=== PATIENT | female | born 1940 | race Caucasian/White ===

== ENCOUNTER 2018-04-03 06:01 | Emergency (ER) | payer MEDICARE, BC, OTHER ==
[2018-04-03] MEDS ORDERED: ASPIRIN 81 MG TABLET, CHEWABLE PO ONE (07:02)
--- NOTE | 2018-04-03 07:17 | ER Document Report ---
ED General - General Chief Complaint: Back Pain Stated Complaint: FALL/BACK PAIN Time Seen by Provider: 04/03/18 07:17 TRAVEL OUTSIDE OF THE [place] IN LAST 30 DAYS: No - HPI Notes: 77-year-old demented female presents with back pain. His back pain is been going on for 6 months. Sharp in nature without radiation. Patient is a poor historian this history is from her and sister bedside. Patient denies all symptoms at this time. Has been seen multiple times by her PCP has access to pain medicine, has a lidocaine patch in place. Patient denies all systems. Patient family states she has been afebrile no other complaints. Although has been suffering from long-standing back pain. Denies any new falls. The found the patient sitting on the floor bedside this morning asked her what was wrong that her back hurts. Refused to get up off floor. 911 called. Patient in good spirits laughing. - Related Data Allergies/Adverse Reactions: No Known Allergies Allergy (Unverified 08/03/11 20:09) Past Medical History - Social History Smoking Status: Never Smoker Chew tobacco use (# tins/day): No Frequency of alcohol use: None Drug Abuse: None Family History: None Patient has suicidal ideation: No Patient has homicidal ideation: No - Past Medical History Cardiac Medical History: Reports: Hx Hypercholesterolemia, Hx Hypertension Endocrine Medical History: Reports: Hx Diabetes Mellitus Type 2 Renal/ Medical History: Denies: Hx Peritoneal Dialysis - Immunizations Hx Diphtheria, Pertussis, Tetanus Vaccination: Yes Review of Systems - Review of Systems -: Yes ROS unobtainable due to patient's medical condition - dementai Physical Exam - Vital signs Vitals: Temp Pulse Resp BP Pulse Ox 98.6 F 80 18 204/79 H 96 04/03/18 06:01 04/03/18 06:01 04/03/18 06:01 04/03/18 06:01 04/03/18 06:01 - Notes Notes: PHYSICAL EXAMINATION: GENERAL: Well-appearing, well-nourished and in no acute distress. HEAD: Atraumatic, normocephalic. EYES: Pupils equal round and reactive to light, extraocular movements intact, sclera anicteric, conjunctiva are normal. ENT: nares patent, oropharynx clear without exudates. Moist mucous membranes. NECK: Normal range of motion, supple without lymphadenopathy LUNGS: Breath sounds clear to auscultation bilaterally and equal. No wheezes rales or rhonchi. HEART: Regular rate and rhythm without murmurs ABDOMEN: Soft, nontender, normoactive bowel sounds. No guarding, no rebound. No masses appreciated. EXTREMITIES: Normal range of motion, no pitting or edema. No cyanosis. NEUROLOGICAL: Cranial nerves grossly intact. Normal speech, normal gait. Normal sensory and motor exams. PSYCH: Normal mood, normal affect. SKIN: Warm, Dry, normal turgor, no rashes or lesions noted. Course - Re-evaluation Re-evalutation: 04/03/18 09:09 Demented elderly female presents with chronic back pain. Patient's extensive lab workup unremarkable, including CPK, troponins, kidney function. Patient's imaging study reveals no acute process in her back. Patient states she has no pain at this time. Will be discharged home with oral analgesia follow-up with PCP. Family states they have been working with her family doctor to possibly move the patient to assisted living or memory care unit but at this time thinks they can take her home - Vital Signs Vital signs: Temp Pulse Resp BP Pulse Ox 98.6 F 80 19 177/69 H 95 04/03/18 06:01 04/03/18 06:01 04/03/18 08:31 04/03/18 08:31 04/03/18 08:31 - Laboratory Result Diagrams: 04/03/18 07:05 04/03/18 07:05 Laboratory results interpreted by me: 04/03/18 04/03/18 04/03/18 07:05 07:05 07:05 WBC 11.1 H RDW 18.0 H PT 22.5 H Sodium 145.6 H Potassium 5.3 H BUN 23 H Glucose 144 H - EKG Interpretation by Me Additional EKG results interpreted by me: 04/03/18 07:21 Normal sinus rhythm, 80 bpm, left bundle branch block, no ST elevation, pathologic T-wave inversions. Discharge - Discharge Clinical Impression: Back pain Qualifiers: Back pain location: low back pain Chronicity: chronic Back pain laterality: midline Sciatica presence: without sciatica Qualified Code(s): M54.5 - Low back pain; G89.29 - Other chronic pain; G89.29 - Other chronic pain Condition: Stable Disposition: HOME, SELF-CARE Instructions: Low Back Pain ([facility]), Oral Narcotic Medication ([facility]), Ice Packs ( [facility]) Prescriptions: Oxycodone HCl [Oxycontin Ir 5 Mg Tablet] 1 mg PO Q6H PRN #9 tablet PRN Reason: For Pain Referrals: JONY KENT MD [Primary Care Provider] - Follow up as needed
--- NOTE | 2018-04-03 07:27 | RADIOLOGY REPORT (SQ) ---
EXAM DESCRIPTION: CHEST SINGLE VIEW COMPLETED DATE/TIME: 04/03/2018 7:18 am REASON FOR STUDY: Back pain COMPARISON: AP chest 08/04/2011 EXAM PARAMETERS: NUMBER OF VIEWS: One view. TECHNIQUE: Single frontal radiographic view of the chest acquired. RADIATION DOSE: NA LIMITATIONS: None. FINDINGS: LUNGS AND PLEURA: Calcified granuloma left lateral costophrenic sulcus. No acute infiltra tori. No pleural effusion. No pneumothorax. MEDIASTINUM AND HILAR STRUCTURES: No masses. Contour normal. HEART AND VASCULAR STRUCTURES: Mild cardiomegaly. Old sternotomy for CABG BONES: No acute findings. HARDWARE: None in the chest. OTHER: No other significant finding. IMPRESSION: NO ACUTE RADIOGRAPHIC FINDING IN THE CHEST. TECHNICAL DOCUMENTATION: JOB ID: [id number] [employer]- All Rights Reserved Reading location - IP/workstation name: [email or web address]
[2018-04-03 07:28] LABS: ABSOLUTE BASOPHILS # (AUTO) 0.1 10^3/uL (0.0-0.2); ABSOLUTE EOSINOPHILS # (AUTO) 0.2 10^3/uL (0.0-0.6); ABSOLUTE LYMPHOCYTES (AUTO) 3.1 10^3/uL (0.5-4.7); ABSOLUTE MONOCYTES (AUTO) 0.9 10^3/uL (0.1-1.4); ABSOLUTE NEUT (AUTO) 6.9 10^3/uL (1.7-8.2); BASOPHILS % (AUTO) 0.8 % (0-2); EOSINOPHILS % (AUTO) 1.4 % (0-6); HEMATOCRIT 37.8 % (36.0-47.0); HEMOGLOBIN 12.7 g/dL (12.0-15.5); LYMPHOCYTES % (AUTO) 28.1 % (13-45); MEAN CORPUSCULAR HEMOGLOBIN 28.3 pg (27.0-33.4); MEAN CORPUSCULAR HGB CONC 33.6 g/dL (32.0-36.0); MEAN CORPUSCULAR VOLUME 84 fl (80-97); PLATELET COUNT 339 10^3/uL (150-450); RED BLOOD COUNT 4.49 10^6/uL (3.72-5.28); SEGMENTED NEUTROPHILS % (AUTO) 61.7 % (42-78); TOTAL CELLS COUNTED % (AUTO) 100 %; WHITE BLOOD COUNT 11.1 10^3/uL (4.0-10.5)
[2018-04-03] MEDS ORDERED: FENTANYL CITRATE INJ/PF 100 MCG/2 ML AMPUL IV ONE ×2 (07:28→07:29)
[2018-04-03 07:46] LABS: INTERNATIONAL RATION (INR) 1.88; PROTHROMBIN TIME 22.5 SEC (11.4-15.4)
[2018-04-03 07:56] LABS: ALANINE AMINOTRANSFERASE 27 U/L (9-52); ALBUMIN 4.2 g/dL (3.5-5.0); ALKALINE PHOSPHATASE 70 U/L (38-126); ANION GAP 14 (5-19); ASPARTATE AMINO TRANSFERASE 26 U/L (14-36); BILIRUBIN,DIRECT 0.3 mg/dL (0.0-0.4); BILIRUBIN,TOTAL 0.3 mg/dL (0.2-1.3); BLOOD UREA NITROGEN 23 mg/dL (7-20); CALCIUM 9.8 mg/dL (8.4-10.2); CARBON DIOXIDE 30 mmol/L (22-30); CHLORIDE 102 mmol/L (98-107); CREATINE KINASE 41 U/L (30-135); GLUCOSE 144 mg/dL (75-110); POTASSIUM 5.3 mmol/L (3.6-5.0); SODIUM 145.6 mmol/L (137-145); TOTAL PROTEIN 7.9 g/dL (6.3-8.2)
[2018-04-03 08:08] LABS: CREATINE KINASE MB 0.97 ng/mL (<4.55)
[2018-04-03 08:11] LABS: TROPONIN I < 0.012 ng/mL
--- NOTE | 2018-04-03 08:42 | RADIOLOGY REPORT (SQ) ---
EXAM DESCRIPTION: L SPINE WHOLE COMPLETED DATE/TIME: 04/03/2018 8:05 am REASON FOR STUDY: back pain poor historian, found on the floor by caregiver, patient complains of lo w back pain COMPARISON: None. NUMBER OF VIEWS: Five views including obliques. TECHNIQUE: AP, lateral, oblique, and sacral radiographic images acquired of the lumbar spine. LIMITATIONS: None. FINDINGS: MINERALIZATION: Osteopenic SEGMENTATION: Normal. No transitional anatomy. ALIGNMENT: Normal. VERTEBRAE: Maintained height. No fracture or worrisome bone lesion. DISCS: Disc space loss of height at L5-S1 POSTERIOR ELEMENTS: Pedicles and facets are intact. No pars defect or posterior arch defects. Advan sameer facet arthropathy at L5-S1 HARDWARE: None in the spine. PARASPINAL SOFT TISSUES: Multiple bilateral intrarenal collecting system stones are present, less fernando n 5 mm on the left side, 2.5 cm on the right side PELVIS: Not included in the field of view. SI joints are unremarkable OTHER: No other significant finding. IMPRESSION: No acute fracture or malalignment. Bilateral intrarenal nonobstructive kidney stones TECHNICAL DOCUMENTATION: JOB ID: [id number]- All Rights Reserved Reading location - IP/workstation name: [facility], [facility]
[2018-04-03 09:44] VITALS: BP 170/65
--- NOTE | 2018-04-03 21:28 | EKG REPORT ---
SEVERITY:- ABNORMAL ECG - SINUS RHYTHM ATRIAL PREMATURE COMPLEX LEFT BUNDLE BRANCH BLOCK : Confirmed by: Yuliana Burgess MD 03-Apr-2018 21:27:31
--- NOTE | 2018-04-03 21:28 | EKG REPORT ---
SEVERITY:- ABNORMAL ECG - SINUS RHYTHM ATRIAL PREMATURE COMPLEX LEFT BUNDLE BRANCH BLOCK : Confirmed by: Yuliana Burgess MD 03-Apr-2018 21:27:37
== END 2018-04-03 09:44 | disposition home or self-care (01) ==
LOC: ER 06:01
DX: G89.29 Other chronic pain (principal); M54.5 Low back pain; E78.00 Pure hypercholesterolemia, unspecified; I10 Essential (primary) hypertension; E11.9 Type 2 diabetes mellitus without complications
CPT/HCPCS: 93005; 99284; 36415; 82553; 82550; 85025; 85610; 80053; 84484; 71045; 72110; 93010; A9270

== ENCOUNTER 2018-10-09 10:25 | Emergency (ER) | payer MEDICARE, BC, OTHER ==
--- NOTE | 2018-10-09 10:59 | ER Document Report ---
ED Fall - General Chief Complaint: Fall Stated Complaint: FALL Time Seen by Provider: 10/09/18 10:56 Mode of Arrival: Wheelchair Information source: Patient, Relative - and Daughter Notes: Patient is a 78-year-old female with dementia who presents after falling just prior to arrival. Her states that they were walking out of an appointment when he believes she tripped and fell pulling him down with her. Patient has a gash over the forehead on the right side just above her eyebrow. Allegedly she did not lose any consciousness however she is on a daily aspirin. Patient reports that she felt dizzy just prior to falling. TRAVEL OUTSIDE OF THE [place] IN LAST 30 DAYS: No - Related data Allergies/Adverse Reactions: No Known Allergies Allergy (Unverified 08/03/11 20:09) Past Medical History - General Information source: Patient - Social History Smoking Status: Never Smoker Frequency of alcohol use: None Drug Abuse: None Family History: None - Past Medical History Cardiac Medical History: Reports: Hx Hypercholesterolemia, Hx Hypertension Endocrine Medical History: Reports: Hx Diabetes Mellitus Type 2 Renal/ Medical History: Denies: Hx Peritoneal Dialysis - Immunizations Hx Diphtheria, Pertussis, Tetanus Vaccination: Yes Review of Systems - Review of Systems Constitutional: Other - Dizziness now resolved EENT: No symptoms reported Cardiovascular: No symptoms reported Respiratory: No symptoms reported Gastrointestinal: No symptoms reported Genitourinary: No symptoms reported Female Genitourinary: No symptoms reported Musculoskeletal: No symptoms reported Skin: See HPI Hematologic/Lymphatic: No symptoms reported Neurological/Psychological: No symptoms reported Physical Exam - Vital signs Vitals: Temp Pulse Resp BP Pulse Ox 97.4 F 77 18 105/65 95 10/09/18 10:31 10/09/18 10:31 10/09/18 10:31 10/09/18 10:31 10/09/18 10:31 - Notes Notes: PHYSICAL EXAMINATION: GENERAL: Well-appearing, well-nourished and in no acute distress. HEAD: Atraumatic, normocephalic. EYES: Pupils equal round and reactive to light, extraocular movements intact, conjunctiva are normal. ENT: Nares patent, oropharynx clear without exudates. Moist mucous membranes. NECK: Normal range of motion, supple without lymphadenopathy LUNGS: Breath sounds clear to auscultation bilaterally and equal. No wheezes rales or rhonchi. HEART: Regular rate and rhythm without murmurs ABDOMEN: Soft, nontender, nondistended abdomen. No guarding, no rebound. No masses appreciated. Female : No CVA tenderness. Musculoskeletal: Normal range of motion, no pitting or edema. No cyanosis. NEUROLOGICAL: Cranial nerves grossly intact. Normal speech. Normal sensory, motor exams PSYCH: Normal mood, normal affect. SKIN: Warm, Dry, normal turgor, no rashes or lesions noted. 2 cm laceration over the patient's right eyebrow, mild bleeding noted. Course - Re-evaluation Re-evalutation: Head CT is negative for any acute findings. Laceration repaired under sterile technique, see procedure note. Lab results are unremarkable, EKG is a ventricular paced rhythm, unchanged from previous EKG on file. Patient is alert, pleasant and mildly confused. Patient's family members state that this is her baseline. Patient stable for discharge. - Vital Signs Vital signs: Temp Pulse Resp BP Pulse Ox 97.4 F 110 H 25 H 117/71 94 10/09/18 10:31 10/09/18 15:40 10/09/18 15:40 10/09/18 15:40 10/09/18 15:40 - Laboratory Result Diagrams: 10/09/18 12:55 10/09/18 12:55 Laboratory results interpreted by me: 10/09/18 10/09/18 12:55 12:55 Hgb 10.7 L Hct 33.9 L MCH 26.2 L MCHC 31.7 L RDW 18.7 H BUN 31 H Est GFR ( Amer) 58 L Est GFR (Non-Af Amer) 48 L Glucose 73 L AST 81 H ALT 83 H Creatine Kinase 21 L Procedures - Laceration/Wound Repair Forehead Wound length (cm): 2 Wound's Depth, Shape: Superficial Laceration pre-procedure: Sterile PPE donned Anesthetic type: 1% Lidocaine Volume Anesthetic (mLs): 5 Wound explored: Clean Irrigated w/ Saline (mLs): 200 Wound Repaired With: Sutures Suture Size/Type: 5:0, Nylon Number of Sutures: 5 Layer Closure?: No Discharge - Discharge Clinical Impression: Fall, Facial laceration Condition: Stable Disposition: HOME, SELF-CARE Additional Instructions: Laceration Care Your laceration has been sutured to keep the skin edges aligned during healing. The time of suture removal depends on the nature and location of your cut. Please follow the care instructions the doctor has outlined for you and return for further care, according to the schedule you've been given. Keep the wound and dressing clean. Unless you were told otherwise, you may shower daily, blotting the wound dry with a clean, unused towel. At other times, If the dressing gets wet or blood soaked, remove it and blot the wound dry, then reapply a new dressing. Unless you were instructed otherwise, dressings should be changed at least daily. If any signs of infection occur (swelling, redness, increasing tenderness, red streaks, tender lumps in the armpit or groin above the laceration, or fever), see the doctor immediately. Your head CT, EKG and blood work today were unremarkable. I could not find a cause for your fall. It is possible that you tripped and fell. Please return to the emergency department or your primary care provider in 5 days for suture removal. Please return earlier if you develop any signs of infection such as increased redness, swelling, foul-smelling drainage or fever. Referrals: JONY KENT MD [Primary Care Provider] - Follow up as needed
--- NOTE | 2018-10-09 11:23 | RADIOLOGY REPORT (SQ) ---
EXAM DESCRIPTION: CT HEAD WITHOUT COMPLETED DATE/TIME: 10/09/2018 11:01 am REASON FOR STUDY: bed 3 fall +blood thinners per yadira COMPARISON: 08/03/2011 TECHNIQUE: Axial images acquired through the brain without intravenous contrast. Images reviewed wi th bone, brain and subdural windows. Additional sagittal and coronal reconstructions were generated. Images stored on PACS. All CT scanners at this facility use dose modulation, iterative reconstruction, and/or weight based d osing when appropriate to reduce radiation dose to as low as reasonably achievable (ALARA). [facility]: Dose Right [facility]: CareDose [facility]: Dose Right [facility]: Teradose 4D [facility]: Smart Trevena RADIATION DOSE: CT Rad equipment meets quality standard of care and radiation dose reduction techniq ues were employed. CTDIvol: 53.2 mGy. DLP: 1044 mGy-cm. mGy. LIMITATIONS: None. FINDINGS: VENTRICLES: Normal size and contour. CEREBRUM: No masses. No hemorrhage. No midline shift. No evidence for acute infarction. Few scatte red areas of low density in the white matter most likely chronic small vessel ischemic changes. CEREBELLUM: No masses. No hemorrhage. No alteration of density. No evidence for acute infarction. EXTRAAXIAL SPACES: No fluid collections. No masses. ORBITS AND GLOBE: No intra- or extraconal masses. Normal contour of globe without masses. CALVARIUM: No fracture. PARANASAL SINUSES: No fluid or mucosal thickening. SOFT TISSUES: No mass or hematoma. OTHER: No other significant finding. IMPRESSION: No acute intracranial pathology. No evidence of intracranial hemorrhage. Small vessel white matter disease. EVIDENCE OF ACUTE STROKE: NO. COMMENT: Quality ID # [id number]: Final reports with documentation of one or more dose reduction techniques (e.g., Automated exposure control, adjustment of the mA and/or kV according to patient size, use of iterative reconstruction technique) TECHNICAL DOCUMENTATION: JOB ID: [id number] [employer]- All Rights Reserved Reading location - IP/workstation name: [email or web address]
[2018-10-09] MEDS ORDERED: LIDOCAINE 1% INJ-PF (10 MG/ML) 30 ML SDV INJ ONE (11:43)
[2018-10-09 13:11] LABS: ABSOLUTE BASOPHILS # (AUTO) 0.1 10^3/uL (0.0-0.2); ABSOLUTE EOSINOPHILS # (AUTO) 0.1 10^3/uL (0.0-0.6); ABSOLUTE LYMPHOCYTES (AUTO) 1.8 10^3/uL (0.5-4.7); ABSOLUTE MONOCYTES (AUTO) 0.5 10^3/uL (0.1-1.4); ABSOLUTE NEUT (AUTO) 5.6 10^3/uL (1.7-8.2); BASOPHILS % (AUTO) 0.9 % (0-2); EOSINOPHILS % (AUTO) 0.8 % (0-6); HEMATOCRIT 33.9 % (36.0-47.0); HEMOGLOBIN 10.7 g/dL (12.0-15.5); LYMPHOCYTES % (AUTO) 22.1 % (13-45); MEAN CORPUSCULAR HEMOGLOBIN 26.2 pg (27.0-33.4); MEAN CORPUSCULAR HGB CONC 31.7 g/dL (32.0-36.0); MEAN CORPUSCULAR VOLUME 83 fl (80-97); MONOCYTES % (AUTO) 6.8 % (3-13); PLATELET COUNT 274 10^3/uL (150-450); RED CELL DISTRIBUTION WIDTH 18.7 % (11.5-14.0); SEGMENTED NEUTROPHILS % (AUTO) 69.4 % (42-78); TOTAL CELLS COUNTED % (AUTO) 100 %; WHITE BLOOD COUNT 8.1 10^3/uL (4.0-10.5)
[2018-10-09 13:28] LABS: ALANINE AMINOTRANSFERASE 83 U/L (9-52); ALKALINE PHOSPHATASE 52 U/L (38-126); ANION GAP 8 (5-19); ASPARTATE AMINO TRANSFERASE 81 U/L (14-36); BILIRUBIN,DIRECT 0.1 mg/dL (0.0-0.4); BILIRUBIN,TOTAL 0.4 mg/dL (0.2-1.3); BLOOD UREA NITROGEN 31 mg/dL (7-20); CALCIUM 9.5 mg/dL (8.4-10.2); CARBON DIOXIDE 27 mmol/L (22-30); CHLORIDE 105 mmol/L (98-107); CREATINE KINASE 21 U/L (30-135); GLUCOSE 73 mg/dL (75-110); POTASSIUM 4.8 mmol/L (3.6-5.0); SODIUM 140.3 mmol/L (137-145); TOTAL PROTEIN 6.6 g/dL (6.3-8.2)
[2018-10-09 13:39] LABS: CREATINE KINASE MB 0.47 ng/mL (<4.55)
[2018-10-09 13:41] LABS: TROPONIN I < 0.012 ng/mL
[2018-10-09 15:51] VITALS: BP 117/71
--- NOTE | 2018-10-09 17:54 | EKG REPORT ---
SEVERITY:- ABNORMAL ECG - VENTRICULAR-PACED COMPLEXES LEFT BUNDLE BRANCH BLOCK VPCs : Confirmed by: Matteo Yi 09-Oct-2018 17:53:29
== END 2018-10-09 15:51 | disposition home or self-care (01) ==
LOC: ER 10:25
DX: S01.81XA Laceration without foreign body of other part of head, initial encounter (principal); W19.XXXA Unspecified fall, initial encounter; Y93.89 Activity, other specified; Y92.481 Parking lot as the place of occurrence of the external cause; R42 Dizziness and giddiness; R41.0 Disorientation, unspecified; I10 Essential (primary) hypertension; E11.9 Type 2 diabetes mellitus without complications; Z79.82 Long term (current) use of aspirin
CPT/HCPCS: 93005; 99285; 36415; 82553; 82550; 85025; 80053; 84484; 70450; 93010; 12011; J3490

== ENCOUNTER 2018-10-18 18:33 | Inpatient (IN) | payer MEDICARE, BC, OTHER ==
--- NOTE | 2018-10-18 19:07 | RADIOLOGY REPORT (SQ) ---
EXAM DESCRIPTION: CHEST SINGLE VIEW COMPLETED DATE/TIME: 10/18/2018 6:59 pm REASON FOR STUDY: sob COMPARISON: 08/04/2011 EXAM PARAMETERS: NUMBER OF VIEWS: One view. TECHNIQUE: Single frontal radiographic view of the chest acquired. RADIATION DOSE: NA LIMITATIONS: None. FINDINGS: LUNGS AND PLEURA: No opacities, masses or pneumothorax. No pleural effusion. MEDIASTINUM AND HILAR STRUCTURES: No masses. Contour normal. HEART AND VASCULAR STRUCTURES: Cardiomegaly. No pulmonary edema. BONES: No acute findings. HARDWARE: Pacemaker. Sternotomy wires. OTHER: No other significant finding. IMPRESSION: Cardiomegaly without pulmonary edema. TECHNICAL DOCUMENTATION: JOB ID: [id number] [employer]- All Rights Reserved Reading location - IP/workstation name: [email or web address]
[2018-10-18] MEDS ORDERED: DILTIAZEM HCL/D5W 125 MG/125 ML RTUINJ IV PRN (19:41)
[2018-10-18] MEDS ORDERED: RINGERS SOLUTION,LACTATED 250 ML IV ONE (19:43)
--- NOTE | 2018-10-18 19:44 | ER Document Report ---
ED General - General Chief Complaint: Altered Mental Status Stated Complaint: SHORTNESS OF BREATH Time Seen by Provider: 10/18/18 18:39 Primary Care Provider: JONY KENT MD [Primary Care Provider] - Follow up as needed Cannot obtain history due to: Dementia Notes: Patient is a 78-year-old female with a past medical history of atrial fibrillation, apparent sick sinus syndrome, congestive heart failure, diabetes, presents by EMS due to complaints of shortness of breath and family concerned the patient has been somewhat listless and lethargic over the last 12-24 hrs. family reports that the patient is much more confused than her baseline. Symptoms started this morning have been progressively worsening throughout the day prompting him to contact EMS. No history of similar symptoms in the past. Taking all medications as directed. Nothing is been noted to improve or worsen the patient's symptoms since onset. They have not contacted the patient's campus recruiting internship her primary care physician regarding today's concerns. History is otherwise limited secondary to the patient's degree of dementia and she is unable to provide any meaningful history. The family states that the patient is also been complaining of right shoulder pain since a fall for which she was seen in the emergency room and several days ago. TRAVEL OUTSIDE OF THE [place] IN LAST 30 DAYS: No - Related Data Allergies/Adverse Reactions: No Known Allergies Allergy (Unverified 08/03/11 20:09) Past Medical History - General Information source: Relative Cannot obtain history due to: Dementia - Social History Smoking Status: Former Smoker Frequency of alcohol use: None Drug Abuse: None Lives with: Family Family History: Reviewed & Not Pertinent Patient has suicidal ideation: No Patient has homicidal ideation: No - Past Medical History Cardiac Medical History: Reports: Hx Atrial Fibrillation, Hx Congestive Heart Failure, Hx Hypercholesterolemia, Hx Hypertension Pulmonary Medical History: Reports: Hx COPD Endocrine Medical History: Reports: Hx Diabetes Mellitus Type 2 Renal/ Medical History: Denies: Hx Peritoneal Dialysis Psychiatric Medical History: Reports: Hx Depression Past Surgical History: Reports: Hx Breast Surgery, Hx Cardiac Catheterization - pacemaker, stents, Hx Section, Hx Gynecologic Surgery - oophorectomy, Hx Orthopedic Surgery - Immunizations Hx Diphtheria, Pertussis, Tetanus Vaccination: Yes Review of Systems - Review of Systems -: Yes ROS unobtainable due to patient's medical condition Physical Exam - Vital signs Vitals: Temp 97.5 F 10/18/18 18:39 Interpretation: Hypotensive, Tachycardic Notes: PHYSICAL EXAMINATION: GENERAL: Somewhat ill in appearance, moderately lethargic but does wake to loud voice HEAD: Atraumatic, normocephalic. EYES: Pupils equal round and reactive to light, extraocular movements intact, sclera anicteric, conjunctiva are normal. ENT: nares patent, oropharynx clear without exudates. Moderately dry mucous membranes. NECK: Normal range of motion, supple without lymphadenopathy LUNGS: Breath sounds clear to auscultation bilaterally and equal. No wheezes rales or rhonchi. HEART: Irregularly irregular tachycardia without murmurs ABDOMEN: Soft, nontender, normoactive bowel sounds. No guarding, no rebound. No masses appreciated. EXTREMITIES: Normal range of motion, 1+ pitting edema in the bilateral lower external he is is equal and symmetric no cyanosis. NEUROLOGICAL: No focal neurological deficits. Moves all extremities spontaneously and on command. PSYCH: Somewhat lethargic, does answer questions briefly but falls asleep rapidly SKIN: Warm, Dry, normal turgor, no rashes or lesions noted. Course - Re-evaluation Re-evalutation: 10/18/18 19:42 Patient presents with atrial fibrillation with rapid ventricular response with associated borderline hypotension. The patient is somewhat lethargic, mod erately hypoxic on initial assessment with saturations of 88% with an appropriate reading on monitor. Her heart rates are ranging between the 110s- 150s. She is already on diltiazem and metoprolol at home." Related with Coumadin. Labs currently pending. The patient was placed on supplemental oxy gen. Last blood pressure is 101 systolic. Will begin a diltiazem infusion without bolus. Will also provide a 250 cc fluid bolus given her borderline hypotension and overall status that appears volume deplete as she has extremely dry mucous membranes. Patient is in guarded condition, will be reassessed at regular intervals. We will interrogate her [employer] pacer. 10/18/18 22:04 Patient has been reassessed on multiple occasions. Heart rate is gradually improving on diltiazem infusion although remains elevated. Blood pressures have remained consistently with a map of 80, last blood pressure 99 on 69. Patient's troponin is normal. BNP markedly elevated although patient does have a known history of CHF and I do not have an old for comparison. Interrogation reveals that the patient has been in RVR for 12 days. 10/18/18 22:26 Despite diltiazem infusion being moved to 10 mg/h the patient's heart rate will not regulate, remains into the 120s-130s and her blood pressure does remain somewhat soft at 94 and 59. Will therefore discontinue diltiazem, will begin digoxin. Will start 0.375 mg bolus and reassess. 10/18/18 23:11 Patient is having significant improvement with digoxin. I have discussed this case with the hospitalist Dr. Draper who has accepted the patient for admissi on. - Vital Signs Vital signs: Temp Pulse Resp BP Pulse Ox 97.5 F 24 H 109/90 H 93 10/18/18 18:59 10/18/18 23:01 10/18/18 23:00 10/18/18 22:31 - Laboratory Result Diagrams: 10/18/18 19:45 10/18/18 19:45 Laboratory results interpreted by me: 10/18/18 10/18/18 10/18/18 19:15 19:45 19:45 WBC 11.2 H Hgb 10.7 L Hct 34.0 L MCH 26.0 L MCHC 31.5 L RDW 19.3 H Potassium 5.2 H BUN 34 H Est GFR ( Amer) 53 L Est GFR (Non-Af Amer) 44 L NT-Pro-B Natriuret Pep Ur Leukocyte Esterase MODERATE H Urine Ascorbic Acid 40 H 10/18/18 19:45 WBC Hgb Hct MCH MCHC RDW Potassium BUN Est GFR ( Amer) Est GFR (Non-Af Amer) NT-Pro-B Natriuret Pep 08890 H Ur Leukocyte Esterase Urine Ascorbic Acid - Diagnostic Test Radiology reviewed: Image reviewed, Reports reviewed Radiology results interpreted by me: 10/18/18 19:43 Chest x-ray: Cardiomegaly without overt pulmonary edema - EKG Interpretation by Me Additional EKG results interpreted by me: 10/18/18 19:44 Atrial fibrillation, rate 138. Left bundle branch block unchanged from previous. Negative Rosana criteria. Critical Care Note - Critical Care Note Total time excluding time spent on procedures (mins): 36 Comments: Critical care time spent obtaining history from patient or surrogate, discussions with consultants, development of treatment plan with patient or surrogate, evaluation of patient's response to treatment, examination of patient, ordering and performing treatments and interventions, ordering and review of laboratory studies, re-evaluation of patient's condition, ordering and review of radiographic studies and review of old charts Discharge - Discharge Clinical Impression: Atrial fibrillation with rapid ventricular response Hypotension Qualifiers: Hypotension type: unspecified hypotension type Qualified Code(s): I95.9 - Hypotension, unspecified Altered mental status Qualifiers: Altered mental status type: unspecified Qualified Code(s): R41.82 - Altered mental status, unspecified Condition: Fair Disposition: ADMITTED INPATIENT Admitting Provider: Hospitalist Unit Admitted: Telemetry Referrals: JONY KENT MD [Primary Care Provider] - Follow up as needed
[2018-10-18 19:50] LABS: APPEARANCE,URINE SLIGHTLY-CLOUDY; BILIRUBIN,URINE NEGATIVE (NEGATIVE); COLOR,URINE YELLOW; GLUCOSE, URINE NEGATIVE (NEGATIVE); KETONES,URINE NEGATIVE (NEGATIVE); LEUKOCYTE ESTERASE,URINE MODERATE (NEGATIVE); NITRITE,URINE NEGATIVE (NEGATIVE); PROTEIN,URINE NEGATIVE (NEGATIVE); URINE SPECIFIC GRAVITY 1.012; UROBILINOGEN,URINE NEGATIVE mg/dL (<2.0)
[2018-10-18 20:07] LABS: ABSOLUTE BASOPHILS # (AUTO) 0.1 10^3/uL (0.0-0.2); ABSOLUTE EOSINOPHILS # (AUTO) 0.1 10^3/uL (0.0-0.6); ABSOLUTE LYMPHOCYTES (AUTO) 1.8 10^3/uL (0.5-4.7); ABSOLUTE MONOCYTES (AUTO) 1.2 10^3/uL (0.1-1.4); ABSOLUTE NEUT (AUTO) 8.1 10^3/uL (1.7-8.2); BASOPHILS % (AUTO) 0.6 % (0-2); EOSINOPHILS % (AUTO) 0.4 % (0-6); HEMOGLOBIN 10.7 g/dL (12.0-15.5); LYMPHOCYTES % (AUTO) 16.4 % (13-45); MEAN CORPUSCULAR HGB CONC 31.5 g/dL (32.0-36.0); MEAN CORPUSCULAR VOLUME 83 fl (80-97); MONOCYTES % (AUTO) 10.7 % (3-13); PLATELET COUNT 288 10^3/uL (150-450); RED BLOOD COUNT 4.12 10^6/uL (3.72-5.28); RED CELL DISTRIBUTION WIDTH 19.3 % (11.5-14.0); SEGMENTED NEUTROPHILS % (AUTO) 71.9 % (42-78); TOTAL CELLS COUNTED % (AUTO) 100 %; WHITE BLOOD COUNT 11.2 10^3/uL (4.0-10.5)
[2018-10-18 20:28] LABS: ALANINE AMINOTRANSFERASE 37 U/L (9-52); ALBUMIN 3.8 g/dL (3.5-5.0); ALKALINE PHOSPHATASE 52 U/L (38-126); ANION GAP 6 (5-19); ASPARTATE AMINO TRANSFERASE 21 U/L (14-36); BILIRUBIN,DIRECT 0.3 mg/dL (0.0-0.4); BILIRUBIN,TOTAL 0.5 mg/dL (0.2-1.3); BLOOD UREA NITROGEN 34 mg/dL (7-20); CALCIUM 9.7 mg/dL (8.4-10.2); CARBON DIOXIDE 28 mmol/L (22-30); CHLORIDE 105 mmol/L (98-107); GLUCOSE 94 mg/dL (75-110); POTASSIUM 5.2 mmol/L (3.6-5.0); SODIUM 138.5 mmol/L (137-145); TOTAL PROTEIN 6.5 g/dL (6.3-8.2)
--- NOTE | 2018-10-18 20:32 | RADIOLOGY REPORT (SQ) ---
EXAM DESCRIPTION: XR SHOULDER 2 OR MORE VIEWS COMPLETED DATE/TME: 10/18/2018 19:41 CLINICAL HISTORY: 78 years, Female, pain, post fall COMPARISON: None. NUMBER OF VIEWS: 3 TECHNIQUE: 3 view right shoulder LIMITATIONS: None. COMPARISON: 12/02/2012 right shoulder. FINDINGS: Osteopenia. Old healed fracture deformity of the proximal humerus, as before. Mild degenerative changes of the acromioclavicular and glenohumeral joints. No radiographic evidence for acute fracture or dislocation. IMPRESSION: Osteopenia. Old humeral fracture deformity. Degenerative change. copyright 2010 [employer]- All Rights Reserved
[2018-10-18 20:39] LABS: TROPONIN I 0.019 ng/mL
[2018-10-18] MEDS ORDERED: DIGOXIN INJ 0.5 MG/2 ML AMPULE IV ONE ×3 (22:25→23:01)
--- NOTE | 2018-10-18 22:52 | EKG REPORT ---
SEVERITY:- ABNORMAL ECG - ATRIAL FIBRILLATION LEFT BUNDLE BRANCH BLOCK : Confirmed by: Yuliana Burgess MD 18-Oct-2018 22:52:09
[2018-10-18] MEDS ORDERED: RINGERS SOLUTION,LACTATED 500 ML IV ONE (23:05)
[2018-10-18] MEDS ORDERED: MAG HYDROX/AL HYDROX/SIMETH SUSP 30 ML UDCUP PO PRN (23:18)
[2018-10-18] MEDS ORDERED: ONDANSETRON HCL INJ/PF 4 MG/2 ML SDV IV PRN (23:18)
[2018-10-18] MEDS ORDERED: NORMAL SALINE 1000 ML 1,000 ML IV PRN (23:18)
[2018-10-18] MEDS ORDERED: ONDANSETRON 4 MG TAB.RAPDIS PO PRN (23:18)
[2018-10-18] MEDS ORDERED: MAGNESIUM HYDROXIDE SUSP 30 ML UDCUP PO PRN (23:18)
[2018-10-18] MEDS ORDERED: MORPHINE SULFATE 10 MG/ML INJ IV PRN ×3 (23:25)
[2018-10-18] MEDS ORDERED: NICOTINE 21 MG/24 HR PATCH.TD24 TD PRN (23:25)
[2018-10-18] MEDS ORDERED: ACETAMINOPHEN 325 MG TABLET PO PRN (23:25)
[2018-10-19 00:15] LABS: CREATINE KINASE MB 0.61 ng/mL (<4.55); TROPONIN I 0.023 ng/mL
[2018-10-19] MEDS ORDERED: SIMVASTATIN 40 MG TABLET PO ONE (00:20)
[2018-10-19] MEDS ORDERED: FAMOTIDINE 20 MG TABLET PO ONE (00:20)
[2018-10-19] MEDS: NORMAL SALINE 1000 ML 1,000 ML IV PRN ×2 (02:32→13:49)
--- NOTE | 2018-10-19 03:15 | PDOC H&P ---
History of Present Illness Admission Date/PCP: JONY KENT MD Patient complains of: Dyspnea History of Present Illness: ROMY GARCIA is a 78 year old female who presented to the emergency room with a 1 day history of progressively worsening dyspnea. The patient's indicates that she had become slightly more short of breath than usual approximately 24 hours prior to admission. She continued to have progressively worsening of her dyspnea with associated increasing lethargy, listlessness and mental confusion. He denies her ever having similar symptoms in the past and he is not identified any aggravating or ameliorating factors for her dyspnea. Patient has significant dementia and is unable to contribute any meaningful historical information to her health care. In the emergency room she was found to have atrial fibrillation with a rapid ventricular response as well as hypotension. Her hypotension improved with volume expansion but her atrial fibrillation continued to show a rapid ventricular response despite administration of digoxin, therefore she was admitted for further evaluation and treatment. Past Medical History Cardiac Medical History: Reports: Atrial Fibrillation, Congestive Heart Failure, Hyperlipidema, Hypertension Pulmonary Medical History: Reports: Chronic Obstructive Pulmonary Disease (COPD) Denies: Asthma, Sleep Apnea EENT Medical History: Reports: None Neurological Medical History: Denies: Hemorrhagic CVA, Ischemic CVA, Seizures Endocrine Medical History: Reports: Diabetes Mellitus Type 2 Denies: Diabetes Mellitus Type 1, Hyperthyroidism, Hypothyroidism Renal/ Medical History: Denies: Chronic Kidney Disease, Nephrolithiasis Malignancy Medical History: Reports: None GI Medical History: Denies: Cirrhosis, Hepatitis Musculoskeltal Medical History: Denies: Arthritis, Gout Skin Medical History: Denies: Eczema, Psoriasis Psychiatric Medical History: Reports: Depression, Tobacco Dependency Denies: Alcohol Dependency, Substance Abuse Traumatic Medical History: Reports: None Hematology: Denies: Anemia, Bleeding Tendencies Infectious Medical History: Reports: None Past Surgical History Past Surgical History: Reports: Appendectomy, Cardiac Catheterization, Section, Coronary Artery Bypass Graft, Coronary Stent, Orthopedic Surgery - Bilateral forearm fractures requiring open reduction and internal fixation, Pacemaker, Other - Nephrectomy Social History Information Source: Relative - Spouse Lives with: Family Smoking Status: Former Smoker Frequency of Alcohol Use: None Hx Recreational Drug Use: No Drugs: None Hx Prescription Drug Abuse: No - Advance Directive Resuscitation Status: Full Code Surrogate healthcare decision maker:: Spouse Family History Family History: Hypertension - Her mother and her mother's side of the family Parental Family History Reviewed: Yes Children Family History Reviewed: No Sibling(s) Family History Reviewed.: Yes Medication/Allergy Home Medications: Magnesium Oxide [Mag-Ox 400 mg Tablet] 08/04/11 Metformin HCl [Glucophage XR 500 mg Tablet] 08/04/11 Potassium Chloride [Klor-Con 10 Meq Tablet.sa] 10 meq PO DAILY 08/04/11 Simvastatin [Zocor 40 mg Tablet] 08/04/11 Torsemide [Demadex 10 mg Tablet] 10 mg PO DAILY 08/04/11 Ondansetron [Zofran Odt 4 mg Tablet] 1 - 2 tab PO Q4H #10 tab.rapdis 12/02/12 Oxycodone HCl/Acetaminophen [Percocet 5-325 mg Tablet] 1 - 2 tab PO ASDIR PRN #25 tablet 12/02/12 Oxycodone HCl [Oxycontin Ir 5 Mg Tablet] 1 mg PO Q6H PRN #9 tablet 04/03/18 Allergies/Adverse Reactions: No Known Allergies Allergy (Unverified 08/03/11 20:09) Review of Systems ROS unobtainable: Due to mental status - Dementia Physical Exam Vital Signs: Temp Pulse Resp BP Pulse Ox 97.5 F 24 H 109/90 H 93 10/18/18 18:59 10/18/18 23:01 10/18/18 23:00 10/18/18 22:31 Intake & Output 10/16/18 10/17/18 10/18/18 23:59 23:59 23:59 Intake Total 12 Balance 12 Weight 70.76 kg General appearance: PRESENT: no acute distress, cooperative Head exam: PRESENT: normocephalic. ABSENT: atraumatic - Ecchymosis noted in the right periorbital region (in resolution phase) Eye exam: PRESENT: conjunctiva pink, EOMI. ABSENT: scleral icterus Ear exam: PRESENT: normal external ear exam. ABSENT: bleeding, drainage Mouth exam: PRESENT: dry mucosa, neck supple Neck exam: ABSENT: JVD, thyromegaly, tracheal deviation Respiratory exam: PRESENT: decreased breath sounds - Minimally decreased breath sounds throughout all aldridge consistent with mild to moderate COPD, prolonged expiratory phas - Minimally prolonged expiratory phase in all aldrigde, symmetrical, unlabored. ABSENT: wheezes Cardiovascular exam: PRESENT: irregular rhythm - Irregularly irregular rate and rhythm, tachycardia. ABSENT: clicks, gallop, rubs Pulses: PRESENT: normal radial pulses, normal dorsalis pedis pul Vascular exam: PRESENT: normal capillary refill. ABSENT: pallor GI/Abdominal exam: PRESENT: [place] [id number], soft Rectal exam: PRESENT: deferred Extremities exam: ABSENT: joint swelling, pedal edema Musculoskeletal exam: ABSENT: deformity, dislocation Neurological exam: PRESENT: alert, oriented to person. ABSENT: oriented to place, oriented to time, oriented to situation Psychiatric exam: PRESENT: anxious, normal mood Focused psych exam: PRESENT: restlessness Skin exam: PRESENT: dry, intact, warm. ABSENT: jaundice, rash, urticaria Results Laboratory Results: 10/18/18 19:45 10/18/18 19:45 10/18/18 10/18/18 10/18/18 19:15 19:45 19:45 WBC 11.2 H RBC 4.12 Hgb 10.7 L Hct 34.0 L MCV 83 MCH 26.0 L MCHC 31.5 L RDW 19.3 H Plt Count 288 Seg Neutrophils % 71.9 Lymphocytes % 16.4 Monocytes % 10.7 Eosinophils % 0.4 Basophils % 0.6 Absolute Neutrophils 8.1 Absolute Lymphocytes 1.8 Absolute Monocytes 1.2 Absolute Eosinophils 0.1 Absolute Basophils 0.1 Sodium 138.5 Potassium 5.2 H Chloride 105 Carbon Dioxide 28 Anion Gap 6 BUN 34 H Creatinine 1.20 Est GFR ( Amer) 53 L Est GFR (Non-Af Amer) 44 L Glucose 94 Calcium 9.7 Total Bilirubin 0.5 AST 21 ALT 37 Alkaline Phosphatase 52 Total Protein 6.5 Albumin 3.8 Urine Color YELLOW Urine Appearance SLIGHTLY-CLOUDY Urine pH 5.0 Ur Specific [place] 1.012 Urine Protein NEGATIVE Urine Glucose (UA) NEGATIVE Urine Ketones NEGATIVE Urine Blood NEGATIVE Urine Nitrite NEGATIVE Ur Leukocyte Esterase MODERATE H Urine WBC (Auto) 3 Urine RBC (Auto) 1 10/18/18 19:45 Troponin I 0.019 NT-Pro-B Natriuret Pep 63827 H Impressions: Chest X-Ray 10/18/18 18:39 IMPRESSION: Cardiomegaly without pulmonary edema. Shoulder X-Ray 10/18/18 19:41 IMPRESSION: Osteopenia. Old humeral fracture deformity. Degenerative change. copyright 2011 [employer]- All Rights Reserved Assessment & Plan - Diagnosis (1) Hypotension Qualifiers: Hypotension type: unspecified hypotension type Qualified Code(s): I95.9 - Hypotension, unspecified Is this a current diagnosis for this admission?: Yes Plan: Patient's hypertension will be addressed with volume replacement initially utilizing crystalloid IV fluids. Consideration of a pressor agent (such as Edu- Synephrine) will be given if the patient fails to respond to volume expansion. (2) Atrial fibrillation with rapid ventricular response Is this a current diagnosis for this admission?: Yes Plan: Will attempt to control patient's atrial fibrillation with rapid ventricular response initially by replacing her fluid volume and eliminating her hypotension. If this is unsuccessful and resolution of the atrial fibrillation additional medications can be given once her hypertension has resolved. Patient did receive digoxin in the emergency room with little or no immediate effect. (3) Chronic obstructive pulmonary disease (COPD) Qualifiers: COPD type: unspecified COPD Qualified Code(s): J44.9 - Chronic obstructive pulmonary disease, unspecified Is this a current diagnosis for this admission?: Yes Plan: Patient will be continued on her usual pulmonary medications with a pulmonary toilet being provided with albuterol and Atrovent plus Xopenex. (4) Congestive heart failure (CHF) Qualifiers: Heart failure type: unspecified Heart failure chronicity: chronic Qualified Code(s): I50.9 - Heart failure, unspecified Is this a current diagnosis for this admission?: Yes Plan: Patient will be continued on her usual cardiac medications used address her congestive heart failure. Changes will be made only as required. (5) Alzheimer's dementia without behavioral disturbance Qualifiers: Alzheimer's disease onset: unspecified onset Qualified Code(s): G30.9 - Alzheimer's disease, unspecified; F02.80 - Dementia in other diseases classified elsewhere without behavioral disturbance Is this a current diagnosis for this admission?: Yes Plan: Patient will receive supportive care and behavioral modification and redirection as required during her hospital course. - Time Time Spent: 30 to 50 Minutes Critical Time spent with patient: Less than 15 minutes Medications reviewed and adjusted accordingly: Yes Anticipated discharge: Home, SNF - Inpatient Certification Based on my medical assessment, after consideration of the patient's comorbidities, presenting symptoms, or acuity I expect that the services needed warrant INPATIENT care.: Yes I certify that my determination is in accordance with my understanding of Medicare's requirements for reasonable and necessary INPATIENT services [42 CFR 412.3e].: Yes Medical Necessity: Significant Comorbidiites Make Outpatient Treatment Too Risky, Need Close Monitoring Due to Risk of Patient Decompensation, Need For IV Fluids, Need For Continuous Telemetry Monitoring, Risk of Complication if Not Cared For in Hospital
[2018-10-19 05:56] LABS: HEMATOCRIT 33.9 % (36.0-47.0); HEMOGLOBIN 10.8 g/dL (12.0-15.5); MEAN CORPUSCULAR HEMOGLOBIN 26.2 pg (27.0-33.4); MEAN CORPUSCULAR VOLUME 82 fl (80-97); PLATELET COUNT 274 10^3/uL (150-450); RED BLOOD COUNT 4.13 10^6/uL (3.72-5.28); WHITE BLOOD COUNT 10.6 10^3/uL (4.0-10.5)
[2018-10-19] MEDS: CHLORPROMAZINE HCL INJ 25 MG/1 ML AMPULE IV SCH ×2 (05:56→13:50)
[2018-10-19] MEDS: HEPARIN SOD (PORCINE) 5,000 UNIT/ML 1 ML SYRINGE SUBCUT SCH ×2 (05:58→13:48)
[2018-10-19 06:22] LABS: BLOOD UREA NITROGEN 31 mg/dL (7-20); CALCIUM 8.8 mg/dL (8.4-10.2); CHOLESTEROL 53.81 mg/dL (0-200); DIGOXIN 1.26 ng/mL (0.8-2.0); GLUCOSE 73 mg/dL (75-110); POTASSIUM 5.3 mmol/L (3.6-5.0); TRIGLYCERIDES 67 mg/dL (<150)
[2018-10-19 06:25] LABS: CARBON DIOXIDE 27 mmol/L (22-30); CHLORIDE 109 mmol/L (98-107); SODIUM 139.7 mmol/L (137-145)
[2018-10-19 06:30] LABS: CREATINE KINASE MB 0.62 ng/mL (<4.55); DIRECT LDL 32 mg/dL (<100); TROPONIN I 0.021 ng/mL
[2018-10-19 06:33] LABS: ANION GAP 4 (5-19); VLDL CHOLESTEROL 13.4 mg/dL (10-31)
[2018-10-19 06:36] LABS: FREE T3 2.23 pg/mL (2.77-5.27); FREE T4 (FREE THYROXINE) 1.24 ng/dL (0.78-2.19)
[2018-10-19 06:49] LABS: THYROID STIMULATING HORMONE 0.82 uIU/mL (0.47-4.68)
[2018-10-19] MEDS ORDERED: DIGOXIN 0.25 MG TABLET PO SCH (10:00)
[2018-10-19] MEDS ORDERED: AMIODARONE HCL 150 MG in DEXTROSE 5%-WATER 100 ML IV ONE (11:00)
[2018-10-19] MEDS: FAMOTIDINE 20 MG TABLET PO SCH ×2 (11:28→21:49)
[2018-10-19] MEDS: DOCUSATE SODIUM 100 MG CAPSULE PO SCH ×2 (11:28→17:10)
[2018-10-19] MEDS: DEXTROSE 5%-WATER 500 ML with AMIODARONE HCL 900 MG IV PRN ×2 (11:51)
[2018-10-19 13:05] LABS: CREATINE KINASE MB 0.7 ng/mL (<4.55); TROPONIN I 0.015 ng/mL
[2018-10-19] MEDS ORDERED: NORMAL SALINE 1000 ML 1,000 ML IV PRN (13:37)
[2018-10-19] MEDS ORDERED: METOPROLOL TARTRATE PF/INJ 5 MG/5 ML SDV IV PRN (14:32)
--- NOTE | 2018-10-19 16:43 | PDOC CONSULTATION ---
Consultation Consult Date: 10/19/18 Consult reason:: Atrial fibrillation with rapid ventricular rate History of Present Illness Admission Date/PCP: 10/18/18 23:36 JONY KENT MD History of Present Illness: ROMY GARCIA is a 78 year old female With past medical history of paroxysmal atrial fibrillation, dementia, hyp erlipidemia who was admitted last night with history of shortness of breath and altered mental status at home. According to the patient's daughter who is a respiratory therapist- patient has had atrial fibrillation for many years and used to be on warfarin therapy until the last few weeks when her delicatessen goods stock clerk in [place] discontinued her warfarin because of an elevated INR. Patient was then started on aspirin alone. According to the patient's and daughter patient has had dementia over the last year or so but was still able to communicate with everyone in the house and ambulate but over the last 4 days she has been very withdrawn and sleeping most of the time along with getting co nfused and then started getting short of breath for which she was brought to the ER where she was found to be hypotensive and in atrial fibrillation with rapid ventricular rate. Initially she was hydrated for fear of dehydration and then subsequently she was digitalized to control atrial fibrillation. When that was unsuccessful she has started on amiodarone drip and patient's heart rate is still very labile. At the time of my interview patient was drowsy and not responding to her name but does move all her limbs. I been told by the staff that she was given IV Thorazine. Patient does have history of falls and there is some bruising on her right side of the face from a recent fall according to the . There is no history of bleeding per rectum or black stools or any fevers at home. 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 Details of surgery are unknown at this time. There is no history of cigarette smoking or alcohol abuse for the patient. Past Medical History Cardiac Medical History: Reports: Atrial Fibrillation, Congestive Heart Failure, Hyperlipidema, Hypertension Pulmonary Medical History: Reports: Chronic Obstructive Pulmonary Disease (COPD) Denies: Asthma, Sleep Apnea EENT Medical History: Reports: None Neurological Medical History: Denies: Hemorrhagic CVA, Ischemic CVA, Seizures Endocrine Medical History: Reports: Diabetes Mellitus Type 2 Denies: Diabetes Mellitus Type 1, Hyperthyroidism, Hypothyroidism Renal/ Medical History: Denies: Chronic Kidney Disease, Nephrolithiasis Malignancy Medical History: Reports: None GI Medical History: Denies: Cirrhosis, Hepatitis Musculoskeltal Medical History: Denies: Arthritis, Gout Skin Medical History: Denies: Eczema, Psoriasis Psychiatric Medical History: Reports: Dementia, Depression, Tobacco Dependency Denies: Alcohol Dependency, Substance Abuse Traumatic Medical History: Reports: None Hematology: Denies: Anemia, Bleeding Tendencies Infectious Medical History: Reports: None Past Surgical History Past Surgical History: Reports: Appendectomy, Cardiac Catheterization, Section, Coronary Artery Bypass Graft, Coronary Stent, Orthopedic Surgery - Bilateral forearm fractures requiring open reduction and internal fixation, Pacemaker, Other - Nephrectomy Social History Lives with: Family Smoking Status: Former Smoker Frequency of Alcohol Use: None Hx Recreational Drug Use: No Drugs: None Hx Prescription Drug Abuse: No - Advance Directive Resuscitation Status: Full Code Family History Family History: Reviewed & Not Pertinent, Hypertension - Her mother and her mother's side of the family Parental Family History Reviewed: Yes Children Family History Reviewed: No Sibling(s) Family History Reviewed.: Unknown Medication/Allergy Home Medications: Albuterol Sulfate [Proair Hfa Inhalation Aerosol 8.5 gm Mdi] 1 puff IH Q6HP PRN 10/19/18 Alendronate Sodium [Fosamax 70 mg Tablet] 70 mg PO DAVID@0600 10/19/18 Aspirin [Ecotrin 325 mg EC Tablet] 325 mg PO DAILY 10/19/18 Atorvastatin Calcium [Lipitor 40 mg Tablet] 40 mg PO QHS 10/19/18 Citalopram Hydrobromide [Citalopram HBr] 20 mg PO DAILY 10/19/18 Diltiazem HCl [Cartia Xt] 180 mg PO Q12 10/19/18 Donepezil HCl [Aricept] 10 mg PO QHS 10/19/18 Furosemide [Lasix 40 mg Tablet] 40 mg PO QAM 10/19/18 Insulin Glargine,Hum.rec.anlog [Basaglar Kwikpen U-100] 44 unit SQ DAILY 10/19/18 Liraglutide [Victoza 2-Mervin] 1.8 mg SQ DAILY 10/19/18 Losartan Potassium [Cozaar 50 mg Tablet] 50 mg PO DAILY 10/19/18 Metformin HCl [Glucophage XR 500 mg Tablet] 1,000 mg PO BIDBS 10/19/18 Metoprolol Tartrate [Lopressor 50 mg Tablet] 50 mg PO Q12 10/19/18 Potassium Chloride [Klor-Con 10 Meq Capsule ER] 20 meq PO Q12 10/19/18 Allergies/Adverse Reactions: No Known Allergies Allergy (Unverified 08/03/11 20:09) Review of Systems ROS unobtainable: Due to mental status Cardiovascular: PRESENT: edema Respiratory: PRESENT: dyspnea Neurological: PRESENT: confusion, memory loss Physical Exam Vital Signs: Temp Pulse Resp BP Pulse Ox 98.6 F 22 H 96/58 L 98 10/19/18 14:31 10/19/18 14:31 10/19/18 15:43 10/19/18 14:31 Intake & Output 10/18/18 10/19/18 10/20/18 06:59 06:59 06:59 Intake Total 1012 1100 Balance 1012 1100 Weight 70.76 kg General appearance: PRESENT: mild distress Respiratory exam: PRESENT: accessory muscle use, clear to auscultation andrae Cardiovascular exam: PRESENT: irregular rhythm, tachycardia Pulses: PRESENT: normal femoral pulses, +2 pedal pulses bilateral GI/Abdominal exam: PRESENT: normal bowel sounds Extremities exam: PRESENT: pedal edema, +1 edema Neurological exam: PRESENT: other Skin exam: PRESENT: abrasion - Right side face Results Laboratory Results: 10/19/18 05:40 10/19/18 05:40 10/18/18 10/18/18 10/18/18 19:15 19:45 19:45 WBC 11.2 H RBC 4.12 Hgb 10.7 L Hct 34.0 L MCV 83 MCH 26.0 L MCHC 31.5 L RDW 19.3 H Plt Count 288 Seg Neutrophils % 71.9 Lymphocytes % 16.4 Monocytes % 10.7 Eosinophils % 0.4 Basophils % 0.6 Absolute Neutrophils 8.1 Absolute Lymphocytes 1.8 Absolute Monocytes 1.2 Absolute Eosinophils 0.1 Absolute Basophils 0.1 Sodium 138.5 Potassium 5.2 H Chloride 105 Carbon Dioxide 28 Anion Gap 6 BUN 34 H Creatinine 1.20 Est GFR ( Amer) 53 L Est GFR (Non-Af Amer) 44 L Glucose 94 Calcium 9.7 Magnesium Total Bilirubin 0.5 AST 21 ALT 37 Alkaline Phosphatase 52 Total Protein 6.5 Albumin 3.8 Triglycerides Cholesterol LDL Cholesterol Direct VLDL Cholesterol HDL Cholesterol TSH Free T4 Free T3 pg/mL Urine Color YELLOW Urine Appearance SLIGHTLY-CLOUDY Urine pH 5.0 Ur Specific [place] 1.012 Urine Protein NEGATIVE Urine Glucose (UA) NEGATIVE Urine Ketones NEGATIVE Urine Blood NEGATIVE Urine Nitrite NEGATIVE Ur Leukocyte Esterase MODERATE H Urine WBC (Auto) 3 Urine RBC (Auto) 1 10/19/18 10/19/18 10/19/18 05:40 05:40 05:40 WBC 10.6 H RBC 4.13 Hgb 10.8 L Hct 33.9 L MCV 82 MCH 26.2 L MCHC 32.0 RDW 19.0 H Plt Count 274 Seg Neutrophils % Lymphocytes % Monocytes % Eosinophils % Basophils % Absolute Neutrophils Absolute Lymphocytes Absolute Monocytes Absolute Eosinophils Absolute Basophils Sodium 139.7 Potassium 5.3 H Chloride 109 H Carbon Dioxide 27 Anion Gap 4 L BUN 31 H Creatinine 1.00 Est GFR ( Amer) > 60 Est GFR (Non-Af Amer) 54 L Glucose 73 L Calcium 8.8 Magnesium 2.0 Total Bilirubin AST ALT Alkaline Phosphatase Total Protein Albumin Triglycerides 67 Cholesterol 53.81 LDL Cholesterol Direct 32 VLDL Cholesterol 13.4 HDL Cholesterol 25 L TSH 0.82 Free T4 1.24 Free T3 pg/mL 2.23 L Urine Color Urine Appearance Urine pH Ur Specific [place] Urine Protein Urine Glucose (UA) Urine Ketones Urine Blood Urine Nitrite Ur Leukocyte Esterase Urine WBC (Auto) Urine RBC (Auto) 10/18/18 10/18/18 10/18/18 19:45 23:30 23:30 Creatine Kinase < 20 L CK-MB (CK-2) 0.61 Troponin I 0.019 0.023 NT-Pro-B Natriuret Pep 69113 H 10/19/18 10/19/18 10/19/18 05:40 05:40 12:19 Creatine Kinase < 20 L < 20 L CK-MB (CK-2) 0.62 Troponin I 0.021 NT-Pro-B Natriuret Pep 10/19/18 12:19 Creatine Kinase CK-MB (CK-2) 0.70 Troponin I 0.015 NT-Pro-B Natriuret Pep Impressions: Chest X-Ray 10/18/18 18:39 IMPRESSION: Cardiomegaly without pulmonary edema. Shoulder X-Ray 10/18/18 19:41 IMPRESSION: Osteopenia. Old humeral fracture deformity. Degenerative change. copyright 2011 [employer]- All Rights Reserved Assessment & Plan - Diagnosis (1) Atrial fibrillation with rapid ventricular response Is this a current diagnosis for this admission?: Yes (2) Hypotension Qualifiers: Hypotension type: unspecified hypotension type Qualified Code(s): I95.9 - Hypotension, unspecified Is this a current diagnosis for this admission?: Yes (3) Altered mental status Qualifiers: Altered mental status type: unspecified Qualified Code(s): R41.82 - Altered mental status, unspecified (4) Alzheimer's dementia without behavioral disturbance Qualifiers: Alzheimer's disease onset: unspecified onset Qualified Code(s): G30.9 - Alzheimer's disease, unspecified; F02.80 - Dementia in other diseases classified elsewhere without behavioral disturbance Is this a current diagnosis for this admission?: Yes (5) Congestive heart failure (CHF) Qualifiers: Heart failure type: unspecified Heart failure chronicity: chronic Qualified Code(s): I50.9 - Heart failure, unspecified Is this a current diagnosis for this admission?: Yes - Notes Notes: Reviewed EKG, telemetry labs and imaging tests. Patient with known history of atrial fibrillation and not on anticoagulation for the past few weeks presents with altered mental status with hypotension. Digitalization was unable to control her ventricular rate and currently patient on IV amiodarone drip. We discussed at length with the patient's and daughter on the phone regarding patient's atrial fibrillation and possible need for DC cardioversion if she becomes hemodynamically unstable again as her blood pressures seem to have improved now with amiodarone and IV hydration. We will however be cautious with over hydration and recommend backing off on IV fluids at this time. We recommend a transthoracic echocardiogram to evaluate current systolic and diastolic function and continuation of amiodarone loading at this point of time. We also recommend a CAT scan of the head to rule out any acute CVA and then consider short-term anticoagulation and therapeutic dose with Lovenox for now. Would also recommend holding off on any sedatives so patient's mental status can be better evaluated. No obvious sign of sepsis but recommend workup to rule out any source of sepsis. We discussed with the patient's and daughter about advanced directives and according to the daughter patient wanted to be a full code when she was alert and awake. We will also recommend getting records from regarding patient's previous cardiac surgery and cardiac workup. Recommend close monitoring for any signs of hemodynamic compromise in which case we may have to resort to DC cardioversion. Recommend fall precautions for the patient and monitoring of hemoglobin hematocrit closely while on anticoagulation. Patient may not be a good candidate for long-term amiodarone therapy but it is reasonable to try short-term amiodarone for rate/rhythm control. Further recommendations will follow after review of transthoracic echocardiogram. - Time Time Spent: Greater than 70 Minutes
--- NOTE | 2018-10-19 16:59 | PDOC PROGRESS REPORT ---
Subjective Progress Note for:: 10/19/18 Subjective:: No adverse events overnight. Still tachycardic in the 130s 140s. Blood pressures have remained on the low side but with IV fluids her mean arterial pressure has been acceptable. She has slept all day since getting Thorazine. Reason For Visit: ATRIAL FIBRILLATION WITH RAPID VENTRICULAR Physical Exam Vital Signs: Temp Pulse Resp BP Pulse Ox 98.6 F 22 H 96/58 L 98 10/19/18 14:31 10/19/18 14:31 10/19/18 15:43 10/19/18 14:31 Intake & Output 10/18/18 10/19/18 10/20/18 06:59 06:59 06:59 Intake Total 1012 1100 Balance 1012 1100 Weight 70.76 kg General appearance: PRESENT: disheveled, other - Sleeping, not really responding except to noxious stimuli Respiratory exam: PRESENT: clear to auscultation andrae, symmetrical, unlabored. ABSENT: accessory muscle use, prolonged expiratory phas, rhonchi, tachypnea, wheezes Cardiovascular exam: PRESENT: irregular rhythm, tachycardia Vascular exam: PRESENT: normal capillary refill GI/Abdominal exam: PRESENT: normal bowel sounds, soft. ABSENT: distended, gua rding, rebound, tenderness Extremities exam: PRESENT: pedal edema, +1 edema. ABSENT: clubbing Musculoskeletal exam: PRESENT: normal inspection. ABSENT: deformity Neurological exam: ABSENT: awake Skin exam: PRESENT: dry, warm Results Laboratory Results: 10/19/18 05:40 10/19/18 05:40 10/18/18 10/18/18 10/18/18 19:15 19:45 19:45 WBC 11.2 H RBC 4.12 Hgb 10.7 L Hct 34.0 L MCV 83 MCH 26.0 L MCHC 31.5 L RDW 19.3 H Plt Count 288 Seg Neutrophils % 71.9 Lymphocytes % 16.4 Monocytes % 10.7 Eosinophils % 0.4 Basophils % 0.6 Absolute Neutrophils 8.1 Absolute Lymphocytes 1.8 Absolute Monocytes 1.2 Absolute Eosinophils 0.1 Absolute Basophils 0.1 Sodium 138.5 Potassium 5.2 H Chloride 105 Carbon Dioxide 28 Anion Gap 6 BUN 34 H Creatinine 1.20 Est GFR ( Amer) 53 L Est GFR (Non-Af Amer) 44 L Glucose 94 Calcium 9.7 Magnesium Total Bilirubin 0.5 AST 21 ALT 37 Alkaline Phosphatase 52 Total Protein 6.5 Albumin 3.8 Triglycerides Cholesterol LDL Cholesterol Direct VLDL Cholesterol HDL Cholesterol TSH Free T4 Free T3 pg/mL Urine Color YELLOW Urine Appearance SLIGHTLY-CLOUDY Urine pH 5.0 Ur Specific [place] 1.012 Urine Protein NEGATIVE Urine Glucose (UA) NEGATIVE Urine Ketones NEGATIVE Urine Blood NEGATIVE Urine Nitrite NEGATIVE Ur Leukocyte Esterase MODERATE H Urine WBC (Auto) 3 Urine RBC (Auto) 1 10/19/18 10/19/18 10/19/18 05:40 05:40 05:40 WBC 10.6 H RBC 4.13 Hgb 10.8 L Hct 33.9 L MCV 82 MCH 26.2 L MCHC 32.0 RDW 19.0 H Plt Count 274 Seg Neutrophils % Lymphocytes % Monocytes % Eosinophils % Basophils % Absolute Neutrophils Absolute Lymphocytes Absolute Monocytes Absolute Eosinophils Absolute Basophils Sodium 139.7 Potassium 5.3 H Chloride 109 H Carbon Dioxide 27 Anion Gap 4 L BUN 31 H Creatinine 1.00 Est GFR ( Amer) > 60 Est GFR (Non-Af Amer) 54 L Glucose 73 L Calcium 8.8 Magnesium 2.0 Total Bilirubin AST ALT Alkaline Phosphatase Total Protein Albumin Triglycerides 67 Cholesterol 53.81 LDL Cholesterol Direct 32 VLDL Cholesterol 13.4 HDL Cholesterol 25 L TSH 0.82 Free T4 1.24 Free T3 pg/mL 2.23 L Urine Color Urine Appearance Urine pH Ur Specific [place] Urine Protein Urine Glucose (UA) Urine Ketones Urine Blood Urine Nitrite Ur Leukocyte Esterase Urine WBC (Auto) Urine RBC (Auto) 10/18/18 10/18/18 10/18/18 19:45 23:30 23:30 Creatine Kinase < 20 L CK-MB (CK-2) 0.61 Troponin I 0.019 0.023 NT-Pro-B Natriuret Pep [id number] H 10/19/18 10/19/18 10/19/18 05:40 05:40 12:19 Creatine Kinase < 20 L < 20 L CK-MB (CK-2) 0.62 Troponin I 0.021 NT-Pro-B Natriuret Pep 10/19/18 12:19 Creatine Kinase CK-MB (CK-2) 0.70 Troponin I 0.015 NT-Pro-B Natriuret Pep Impressions: Chest X-Ray 10/18/18 18:39 IMPRESSION: Cardiomegaly without pulmonary edema. Shoulder X-Ray 10/18/18 19:41 IMPRESSION: Osteopenia. Old humeral fracture deformity. Degenerative change. copyright 2011 [employer]- All Rights Reserved Assessment & Plan - Diagnosis (1) Atrial fibrillation with rapid ventricular response Is this a current diagnosis for this admission?: Yes Plan: We cannot use her home metoprolol or Cardizem because of her blood pressure. We have got her on digoxin, but she did not really respond to that so we added an amiodarone bolus loading dose with a continuous infusion. She is not really responded very well to that either. Cardiology has been consulted. If she deteriorates hemodynamically, she will need to be cardioverted. (2) Hypotension Qualifiers: Hypotension type: other hypotension type Qualified Code(s): I95.89 - Other hypotension Is this a current diagnosis for this admission?: Yes Plan: Part of her hypotension was from volume depletion, but she is also not got effective circulation at this point because of her rapid atrial fibrillation. We could not use rate controlling agents that affect blood pressure, so we have got her on digoxin and amiodarone in the hopes that we will not affect her blood pressure. (3) Alzheimer's dementia without behavioral disturbance Qualifiers: Alzheimer's disease onset: unspecified onset Qualified Code(s): G30.9 - Alzheimer's disease, unspecified; F02.80 - Dementia in other diseases classified elsewhere without behavioral disturbance Is this a current diagnosis for this admission?: Yes Plan: She was agitated and bit combative earlier, and she got some Thorazine, but she is oversedated at this point so we stop the Thorazine so that we can better ass ess her. - Time Time Spent with patient: 25-34 minutes
--- NOTE | 2018-10-19 17:46 | RADIOLOGY REPORT (SQ) ---
EXAM DESCRIPTION: CT HEAD WITHOUT COMPLETED DATE/TIME: 10/19/2018 4:20 pm REASON FOR STUDY: encephalopathy COMPARISON: 10/09/2018 TECHNIQUE: Axial images acquired through the brain without intravenous contrast. Images reviewed wi th bone, brain and subdural windows. Additional sagittal and coronal reconstructions were generated. Images stored on PACS. All CT scanners at this facility use dose modulation, iterative reconstruction, and/or weight based d osing when appropriate to reduce radiation dose to as low as reasonably achievable (ALARA). [facility]: Dose Right [facility]: CareDose [facility]: Dose Right [facility]: Teradose 4D [facility]: Smart [employer] RADIATION DOSE: CT Rad equipment meets quality standard of care and radiation dose reduction techniq ues were employed. CTDIvol: 53.2 mGy. DLP: 1017 mGy-cm.mGy. LIMITATIONS: None. FINDINGS: VENTRICLES: Prominent. CEREBRUM: No masses. No hemorrhage. No midline shift. Areas of low density in the white matter mos t likely due to chronic micro-vascular ischemic change. No evidence for acute infarction. CEREBELLUM: No masses. No hemorrhage. No alteration of density. No evidence for acute infarction. EXTRAAXIAL SPACES: Age-related involutional change. No fluid collections. No masses. ORBITS AND GLOBE: No intra- or extraconal masses. Normal contour of globe without masses. CALVARIUM: No fracture. PARANASAL SINUSES: No fluid or mucosal thickening. SOFT TISSUES: No mass or hematoma. OTHER: No other significant finding. IMPRESSION: CHRONIC CHANGES OF ATROPHY AND MICROVASCULAR ISCHEMIA. NO ACUTE PROCESS. EVIDENCE OF ACUTE STROKE: NO. TECHNICAL DOCUMENTATION: JOB ID: [id number] Quality ID # [id number]: Final reports with documentation of one or more dose reduction techniques (e.g., Au tomated exposure control, adjustment of the mA and/or kV according to patient size, use of iterative reconstruction technique) 2010 [employer] All Rights Reserved Reading location - IP/workstation name: [email or web address]
--- NOTE | 2018-10-19 17:54 | PDOC PROGRESS REPORT ---
Subjective Progress Note for:: 10/19/18 Reason For Visit: ATRIAL FIBRILLATION WITH RAPID VENTRICULAR RN called for evaluation for hypotension. Pt seen at bedside- more awake now with MAP 64 mm Hg and in atrial fibrillation with variable ventricular rate. Patient has warm extremities and now on oxygen via NC at 2 liter/min and saturating 95%. CT head done but not reported yet. IVF stopped as pt reported to have basilar creps. On my auscultation decreased air entry at lung bases with occasional bronchial sounds heard. Howard catheter placed and returned > 200 cc urine. Will monitor closely for fluid overload and use diuretic if required. Will continue on amiodarone drip for now and await CT head report- if no acute CVA will recommend therapeutic lovenox. Will get STAT echo to evaluate systolic and diastolic function. DC cardioversion if hemodynamic instability. Plan discussed with hospitalist team. Time spent 30 minutes Physical Exam Vital Signs: Temp Pulse Resp BP Pulse Ox 97.5 F 106 H 16 96/58 L 99 10/19/18 15:41 10/19/18 15:41 10/19/18 15:41 10/19/18 15:43 10/19/18 15:41 Intake & Output 10/18/18 10/19/18 10/20/18 06:59 06:59 06:59 Intake Total 1012 1100 Balance 1012 1100 Weight 70.76 kg 74.5 kg Results Laboratory Results: 10/19/18 05:40 10/19/18 05:40 10/18/18 10/18/18 10/18/18 19:15 19:45 19:45 WBC 11.2 H RBC 4.12 Hgb 10.7 L Hct 34.0 L MCV 83 MCH 26.0 L MCHC 31.5 L RDW 19.3 H Plt Count 288 Seg Neutrophils % 71.9 Lymphocytes % 16.4 Monocytes % 10.7 Eosinophils % 0.4 Basophils % 0.6 Absolute Neutrophils 8.1 Absolute Lymphocytes 1.8 Absolute Monocytes 1.2 Absolute Eosinophils 0.1 Absolute Basophils 0.1 Sodium 138.5 Potassium 5.2 H Chloride 105 Carbon Dioxide 28 Anion Gap 6 BUN 34 H Creatinine 1.20 Est GFR ( Amer) 53 L Est GFR (Non-Af Amer) 44 L Glucose 94 Calcium 9.7 Magnesium Total Bilirubin 0.5 AST 21 ALT 37 Alkaline Phosphatase 52 Total Protein 6.5 Albumin 3.8 Triglycerides Cholesterol LDL Cholesterol Direct VLDL Cholesterol HDL Cholesterol TSH Free T4 Free T3 pg/mL Urine Color YELLOW Urine Appearance SLIGHTLY-CLOUDY Urine pH 5.0 Ur Specific [place] 1.012 Urine Protein NEGATIVE Urine Glucose (UA) NEGATIVE Urine Ketones NEGATIVE Urine Blood NEGATIVE Urine Nitrite NEGATIVE Ur Leukocyte Esterase MODERATE H Urine WBC (Auto) 3 Urine RBC (Auto) 1 10/19/18 10/19/18 10/19/18 05:40 05:40 05:40 WBC 10.6 H RBC 4.13 Hgb 10.8 L Hct 33.9 L MCV 82 MCH 26.2 L MCHC 32.0 RDW 19.0 H Plt Count 274 Seg Neutrophils % Lymphocytes % Monocytes % Eosinophils % Basophils % Absolute Neutrophils Absolute Lymphocytes Absolute Monocytes Absolute Eosinophils Absolute Basophils Sodium 139.7 Potassium 5.3 H Chloride 109 H Carbon Dioxide 27 Anion Gap 4 L BUN 31 H Creatinine 1.00 Est GFR ( Amer) > 60 Est GFR (Non-Af Amer) 54 L Glucose 73 L Calcium 8.8 Magnesium 2.0 Total Bilirubin AST ALT Alkaline Phosphatase Total Protein Albumin Triglycerides 67 Cholesterol 53.81 LDL Cholesterol Direct 32 VLDL Cholesterol 13.4 HDL Cholesterol 25 L TSH 0.82 Free T4 1.24 Free T3 pg/mL 2.23 L Urine Color Urine Appearance Urine pH Ur Specific [place] Urine Protein Urine Glucose (UA) Urine Ketones Urine Blood Urine Nitrite Ur Leukocyte Esterase Urine WBC (Auto) Urine RBC (Auto) 10/18/18 10/18/18 10/18/18 19:45 23:30 23:30 Creatine Kinase < 20 L CK-MB (CK-2) 0.61 Troponin I 0.019 0.023 NT-Pro-B Natriuret Pep [id number] H 10/19/18 10/19/18 10/19/18 05:40 05:40 12:19 Creatine Kinase < 20 L < 20 L CK-MB (CK-2) 0.62 Troponin I 0.021 NT-Pro-B Natriuret Pep 10/19/18 12:19 Creatine Kinase CK-MB (CK-2) 0.70 Troponin I 0.015 NT-Pro-B Natriuret Pep Impressions: Chest X-Ray 10/18/18 18:39 IMPRESSION: Cardiomegaly without pulmonary edema. Shoulder X-Ray 10/18/18 19:41 IMPRESSION: Osteopenia. Old humeral fracture deformity. Degenerative change. copyright 2011 [employer]- All Rights Reserved Assessment & Plan - Diagnosis (1) Atrial fibrillation with rapid ventricular response Is this a current diagnosis for this admission?: Yes (2) Hypotension Qualifiers: Hypotension type: other hypotension type Qualified Code(s): I95.89 - Other hypotension Is this a current diagnosis for this admission?: Yes (3) Altered mental status Qualifiers: Altered mental status type: unspecified Qualified Code(s): R41.82 - Altered mental status, unspecified (4) Alzheimer's dementia without behavioral disturbance Qualifiers: Alzheimer's disease onset: unspecified onset Qualified Code(s): G30.9 - Alzheimer's disease, unspecified; F02.80 - Dementia in other diseases classified elsewhere without behavioral disturbance Is this a current diagnosis for this admission?: Yes (5) Congestive heart failure (CHF) Qualifiers: Heart failure type: unspecified Heart failure chronicity: chronic Qualified Code(s): I50.9 - Heart failure, unspecified Is this a current diagnosis for this admission?: Yes
[2018-10-19] MEDS ORDERED: INSULIN LISPRO 100 UNIT/ML 3 ML VIAL SUBCUT PRN (19:02)
[2018-10-19] MEDS ORDERED: DEXTROSE 40% GEL 15 GM TUBE PO PRN (19:30)
[2018-10-19] MEDS ORDERED: DEXTROSE 50%-WATER SYRINGE 12.5 GM/25 ML DOSE IV PRN (19:30)
[2018-10-19] MEDS ORDERED: GLUCAGON,HUMAN RECOMB 1 MG INJ IM PRN (19:30)
[2018-10-19] MEDS ORDERED: DEXTROSE 40% GEL 15 GM TUBE X 2 PO PRN (19:30)
[2018-10-19] MEDS ORDERED: DEXTROSE 50%-WATER SYRINGE 25 GM/50 ML DOSE IV PRN (19:30)
--- NOTE | 2018-10-19 19:45 | XCELERA REPORT ---
[address] [address] Transthoracic Echocardiogram Report Name: ROMY GARCIA Age: 78 yrs Gender: Female : 1940 Patient Status: Inpatient Patient Location: [facility]^A Study Date: 10/19/2018 06:28 PM Height: 63 in Weight: 164 lb BSA: 1.8 m2 Reason For Study: afib with RVR Ordering Physician: HAKEEM CONN Performed By: Hipolito Brown Interpretation Summary Technologist comment: Patient post cardioversion, cardioversion pads still in place and limited sonographic windows, patient was very combative and did not tolerate transducer pressure well or trying to move the cardioversion pad out of the way to see echo window, all echo windows attempted, patient extremely difficult to scan. Suboptimal study quality with many poor images limiting detailed cradiac evaluation. Lack of contrast enhancement limits interpretation for thrombus, wall motion and accurate estimation of LVEF. LVEF appaers severely decreased and visually estimated at 20-25%. RV systolic function appears moderately to severely decreased. Aortic valve not well visualized but appears focally calcified and doppler data provided does not suggest any singificant trasnaortic gradient. MV leaflets not well visualized but appear thickened/calcified with mitral annular calcification. There is a moderate to severe amount of tricuspid regurgitation The inferior vena cava appeared normal and decreased > 50% with respiration (RAP 5-10 mmHg) RV and RA device lead noted. MMode/2D Measurements & Calculations RVDd: 2.8 cm LVIDd: 4.6 cm FS: 20.4 % Ao root diam: 3.5 cm IVSd: 0.56 cm LVIDs: 3.7 cm EDV(Teich): 97.8 mlAo root area: LVPWd: 1.2 cm ESV(Teich): 57.0 ml 9.9 cm2 EF(Teich): 41.7 % LA dimension: 3.6 cm LVOT diam: 2.0 cm LVLd ap4: 7.6 cm SV(MOD-sp4): LVOT area: EDV(MOD-sp4): 20.0 ml 72.0 ml 3.1 cm2 LVLs ap4: 7.0 cm ESV(MOD-sp4): 52.0 ml EF(MOD-sp4): 27.8 % Doppler Measurements & Calculations MV E max james: MV P1/2t max james: Ao V2 max: LV V1 max P.2 cm/sec 131.1 cm/sec 101.6 cm/sec 2.6 mmHg MV P1/2t: 62.7 msec Ao max PG: LV V1 mean PG: MVA(P1/2t): 3.5 cm2 4.1 mmHg 1.5 mmHg MV dec slope: Ao V2 mean: LV V1 max: 63.3 cm/sec 80.8 cm/sec 612.5 cm/sec2 Ao mean PG: LV V1 mean: MV dec time: 0.17 sec 2.0 mmHg 56.0 cm/sec Ao V2 VTI: 14.3 cmLV V1 VTI: 10.5 cm FEDERICA(I,D): 2.3 cm2 FEDERICA(V,D): 2.5 cm2 SV(LVOT): 32.4 ml PA V2 max: TR max james: MV P1/2t-pr_phl: 92.3 cm/sec 290.9 cm/sec 62.7 msec PA max P.4 mmHg TR max P.8 mmHg Left Ventricle Left ventricular systolic function is severely reduced. Right Ventricle There is a pacemaker lead in the right ventricle. The right ventricular systolic function is moderate to severely reduced. Atria There is a catheter/pacemaker lead seen in the right atrium. Right atrium not well visualized secondary to technical limitations. The left atrium is not well visualized secondary to technical limitations. Mitral Valve MV leaflets not well visualized but appear thickened/calcified with mitral annular calcification. Aortic Valve The aortic valve is not well visualized secondary to technical limitations. There is a peak gradient of 4 mm of Hg. AV Vmax 102 cm/sec Mean PG 2 mm Hg. Tricuspid Valve The tricuspid valve is not well visualized secondary to technical limitations. There is a moderate to severe amount of tricuspid regurgitation. RVSP based on TR jet not reliable in setting of RV systolic dysfunction. Pulmonic Valve The pulmonic valve is not well visualized. Great Vessels The aortic root is normal size. The inferior vena cava appeared normal and decreased > 50% with respiration (RAP 5-10 mmHg). Effusions Pericardium not well visualized to rule out pericardial effusion. : HAKEEM CONN > Hakeem Conn
[2018-10-19] MEDS ORDERED: ENOXAPARIN SODIUM INJ 80 MG/0.8 ML DISP.SYRIN SUBCUT ONE ×2 (20:41→21:30)
[2018-10-19] MEDS ORDERED: MIDAZOLAM 2 MG/2 ML INJ ONE (20:47)
[2018-10-19] MEDS ORDERED: FENTANYL CITRATE INJ/PF 100 MCG/2 ML AMPUL ONE (20:47)
[2018-10-19] MEDS ORDERED: DEXTROSE 5%-WATER 500 ML with AMIODARONE HCL 900 MG IV PRN ×2 (21:19)
[2018-10-19] MEDS ORDERED: MIDAZOLAM 2 MG/2 ML INJ IV ONE (21:30)
--- NOTE | 2018-10-19 21:37 | EKG REPORT ---
SEVERITY:- ABNORMAL ECG - SINUS RHYTHM NONSPECIFIC INTRAVENTRICULAR CONDUCTION DELAY : Confirmed by: Yuliana Burgess MD 19-Oct-2018 21:36:37
--- NOTE | 2018-10-19 21:41 | PDOC PROGRESS REPORT ---
Subjective Progress Note for:: 10/19/18 Reason For Visit: ATRIAL FIBRILLATION WITH RAPID VENTRICULAR Physical Exam Vital Signs: Temp Pulse Resp BP Pulse Ox 97.5 F 93 20 111/56 L 96 10/19/18 15:41 10/19/18 20:57 10/19/18 20:57 10/19/18 20:57 10/19/18 20:57 Intake & Output 10/18/18 10/19/18 10/20/18 06:59 06:59 06:59 Intake Total 1012 1306 Balance 1012 1306 Weight 70.76 kg 74.5 kg Results Laboratory Results: 10/19/18 05:40 10/19/18 05:40 10/19/18 10/19/18 10/19/18 05:40 05:40 05:40 WBC 10.6 H RBC 4.13 Hgb 10.8 L Hct 33.9 L MCV 82 MCH 26.2 L MCHC 32.0 RDW 19.0 H Plt Count 274 Sodium 139.7 Potassium 5.3 H Chloride 109 H Carbon Dioxide 27 Anion Gap 4 L BUN 31 H Creatinine 1.00 Est GFR ( Amer) > 60 Est GFR (Non-Af Amer) 54 L Glucose 73 L Calcium 8.8 Magnesium 2.0 Triglycerides 67 Cholesterol 53.81 LDL Cholesterol Direct 32 VLDL Cholesterol 13.4 HDL Cholesterol 25 L TSH 0.82 Free T4 1.24 Free T3 pg/mL 2.23 L 10/18/18 10/18/18 10/18/18 19:45 23:30 23:30 Creatine Kinase < 20 L CK-MB (CK-2) 0.61 Troponin I 0.019 0.023 NT-Pro-B Natriuret Pep [id number] H 10/19/18 10/19/18 10/19/18 05:40 05:40 12:19 Creatine Kinase < 20 L < 20 L CK-MB (CK-2) 0.62 Troponin I 0.021 NT-Pro-B Natriuret Pep 10/19/18 12:19 Creatine Kinase CK-MB (CK-2) 0.70 Troponin I 0.015 NT-Pro-B Natriuret Pep Impressions: Chest X-Ray 10/18/18 18:39 IMPRESSION: Cardiomegaly without pulmonary edema. Shoulder X-Ray 10/18/18 19:41 IMPRESSION: Osteopenia. Old humeral fracture deformity. Degenerative change. copyright 2010 [employer]- All Rights Reserved Head CT 10/19/18 00:00 IMPRESSION: CHRONIC CHANGES OF ATROPHY AND MICROVASCULAR ISCHEMIA. NO ACUTE PROCESS. EVIDENCE OF ACUTE STROKE: NO. Assessment & Plan - Diagnosis (1) Atrial fibrillation with rapid ventricular response Is this a current diagnosis for this admission?: Yes (2) Hypotension Qualifiers: Hypotension type: other hypotension type Qualified Code(s): I95.89 - Other hypotension Is this a current diagnosis for this admission?: Yes (3) Altered mental status Qualifiers: Altered mental status type: unspecified Qualified Code(s): R41.82 - Altered mental status, unspecified (4) Alzheimer's dementia without behavioral disturbance Qualifiers: Alzheimer's disease onset: unspecified onset Qualified Code(s): G30.9 - Alzheimer's disease, unspecified; F02.80 - Dementia in other diseases classified elsewhere without behavioral disturbance Is this a current diagnosis for this admission?: Yes (5) Congestive heart failure (CHF) Qualifiers: Heart failure type: unspecified Heart failure chronicity: chronic Qualified Code(s): I50.9 - Heart failure, unspecified Is this a current diagnosis for this admission?: Yes - Notes Notes: Date of procedure 10/19/2018 Synchronized DC cardioversion Indication for procedure: Atrial fibrillation with rapid ventricular rate and low cardiac output state with hypotension Informed consent was obtained from patient's spouse and patient's daughter regarding the risks/benefits of electrical cardioversion including risk of arrhythmias, embolic event including stroke and sudden . Patient's spouse verbalized understanding of the risk and signed the consent form for the procedure. Patient was sedated by resolution manager anesthesia WATER AND FIRE TECHNICIAN with IV Versed. Defibrillator pads were applied in the anterior-posterior position with patient being in supine position and 200 J DC current was applied with successful cardioversion to sinus rhythm. Patient tolerated the procedure well with no complications. Postprocedure EKG was obtained which showed sinus rhythm. Hakeem Conn MD
--- NOTE | 2018-10-19 21:44 | PDOC PROGRESS REPORT ---
Subjective Progress Note for:: 10/19/18 Reason For Visit: ATRIAL FIBRILLATION WITH RAPID VENTRICULAR Physical Exam Vital Signs: Temp Pulse Resp BP Pulse Ox 97.5 F 93 20 111/56 L 96 10/19/18 15:41 10/19/18 20:57 10/19/18 20:57 10/19/18 20:57 10/19/18 20:57 Intake & Output 10/18/18 10/19/18 10/20/18 06:59 06:59 06:59 Intake Total 1012 1306 Balance 1012 1306 Weight 70.76 kg 74.5 kg Results Laboratory Results: 10/19/18 05:40 10/19/18 05:40 10/19/18 10/19/18 10/19/18 05:40 05:40 05:40 WBC 10.6 H RBC 4.13 Hgb 10.8 L Hct 33.9 L MCV 82 MCH 26.2 L MCHC 32.0 RDW 19.0 H Plt Count 274 Sodium 139.7 Potassium 5.3 H Chloride 109 H Carbon Dioxide 27 Anion Gap 4 L BUN 31 H Creatinine 1.00 Est GFR ( Amer) > 60 Est GFR (Non-Af Amer) 54 L Glucose 73 L Calcium 8.8 Magnesium 2.0 Triglycerides 67 Cholesterol 53.81 LDL Cholesterol Direct 32 VLDL Cholesterol 13.4 HDL Cholesterol 25 L TSH 0.82 Free T4 1.24 Free T3 pg/mL 2.23 L 10/18/18 10/18/18 10/18/18 19:45 23:30 23:30 Creatine Kinase < 20 L CK-MB (CK-2) 0.61 Troponin I 0.019 0.023 NT-Pro-B Natriuret Pep [id number] H 10/19/18 10/19/18 10/19/18 05:40 05:40 12:19 Creatine Kinase < 20 L < 20 L CK-MB (CK-2) 0.62 Troponin I 0.021 NT-Pro-B Natriuret Pep 10/19/18 12:19 Creatine Kinase CK-MB (CK-2) 0.70 Troponin I 0.015 NT-Pro-B Natriuret Pep Impressions: Chest X-Ray 10/18/18 18:39 IMPRESSION: Cardiomegaly without pulmonary edema. Shoulder X-Ray 10/18/18 19:41 IMPRESSION: Osteopenia. Old humeral fracture deformity. Degenerative change. copyright 2010 [employer]- All Rights Reserved Head CT 10/19/18 00:00 IMPRESSION: CHRONIC CHANGES OF ATROPHY AND MICROVASCULAR ISCHEMIA. NO ACUTE PROCESS. EVIDENCE OF ACUTE STROKE: NO. Assessment & Plan - Diagnosis (1) Atrial fibrillation with rapid ventricular response Is this a current diagnosis for this admission?: Yes (2) Hypotension Qualifiers: Hypotension type: other hypotension type Qualified Code(s): I95.89 - Other hypotension Is this a current diagnosis for this admission?: Yes (3) Altered mental status Qualifiers: Altered mental status type: unspecified Qualified Code(s): R41.82 - Altered mental status, unspecified (4) Alzheimer's dementia without behavioral disturbance Qualifiers: Alzheimer's disease onset: unspecified onset Qualified Code(s): G30.9 - Alzheimer's disease, unspecified; F02.80 - Dementia in other diseases classified elsewhere without behavioral disturbance Is this a current diagnosis for this admission?: Yes (5) Congestive heart failure (CHF) Qualifiers: Heart failure type: unspecified Heart failure chronicity: chronic Qualified Code(s): I50.9 - Heart failure, unspecified Is this a current diagnosis for this admission?: Yes - Notes Notes: Reviewed patient's stat echocardiogram which showed severely decreased LVEF at 20-25%. Patient reevaluated and continues to have fragile blood pressure with intermittent hypotension and decreased urine output with altered mentation. Interrogated patient's [employer] pacemaker which showed 100% AT/AF load with multiple recent episodes of atrial fibrillation with rapid ventricular rate. Decided to proceed with DC electrical cardioversion in view of low cardiac output state with symptomatic atrial fibrillation with rapid ventricular rate. Discussed at length the risks/benefits of cardioversion with the patient's family and they agreed to proceed. Patient was transferred to medical ICU and under sedation by anesthesia COMMUNITY SPORTS COORDINATOR patient was successfully cardioverted to sinus rhythm. Postprocedure EKG showed sinus rhythm. Plan is to continue patient on IV amiodarone and patient has also been started on therapeutic Lovenox for anticoagulation. Patient's family was updated about the procedure results. Total time spent for critical care 60 minutes Hakeem Conn
[2018-10-19] MEDS ORDERED: SIMVASTATIN 40 MG TABLET PO SCH (22:00)
[2018-10-19] MEDS ORDERED: ENOXAPARIN SODIUM INJ 80 MG/0.8 ML DISP.SYRIN SUBCUT SCH (22:00)
[2018-10-20] MEDS ORDERED: CHLORPROMAZINE HCL INJ 25 MG/1 ML AMPULE IV PRN (03:18)
[2018-10-20] MEDS ORDERED: CHLORPROMAZINE HCL INJ 25 MG/1 ML AMPULE ONE (03:25)
[2018-10-20 04:29] LABS: HEMATOCRIT 32.9 % (36.0-47.0); HEMOGLOBIN 10.4 g/dL (12.0-15.5); MEAN CORPUSCULAR HEMOGLOBIN 26.4 pg (27.0-33.4); MEAN CORPUSCULAR HGB CONC 31.6 g/dL (32.0-36.0); MEAN CORPUSCULAR VOLUME 84 fl (80-97); PLATELET COUNT 210 10^3/uL (150-450); RED BLOOD COUNT 3.94 10^6/uL (3.72-5.28); RED CELL DISTRIBUTION WIDTH 19.5 % (11.5-14.0); WHITE BLOOD COUNT 7.6 10^3/uL (4.0-10.5)
[2018-10-20 04:40] LABS: ARTERIAL BLOOD BASE EXCESS -2.1 mmol/L; ARTERIAL BLOOD H2CO3 1.65 mmol/L (1.05-1.35); ARTERIAL BLOOD HCO3 25.2 mmol/L (20-24); ARTERIAL BLOOD O2 SATURATION 92.3 % (94-98); ARTERIAL BLOOD PCO2 54.8 mmHg (35-45); ARTERIAL BLOOD PH 7.28 (7.35-7.45); ARTERIAL BLOOD PO2 71.9 mmHg (80-100); ARTERIAL BLOOD TOTAL CO2 26.9 mmol/L (21-25)
[2018-10-20 04:42] LABS: ARTERIAL BLOOD FIO2 6LVM
[2018-10-20 04:59] LABS: BLOOD UREA NITROGEN 28 mg/dL (7-20); CALCIUM 8.5 mg/dL (8.4-10.2); DIGOXIN 0.97 ng/mL (0.8-2.0); GLUCOSE 79 mg/dL (75-110); POTASSIUM 4.8 mmol/L (3.6-5.0)
[2018-10-20 05:02] LABS: CARBON DIOXIDE 26 mmol/L (22-30); CHLORIDE 109 mmol/L (98-107); SODIUM 139.4 mmol/L (137-145)
[2018-10-20 05:08] LABS: ANION GAP 4 (5-19)
[2018-10-20 07:06] VITALS: BP 124/71
[2018-10-20 07:56] LABS: ARTERIAL BLOOD BASE EXCESS -2.1 mmol/L; ARTERIAL BLOOD H2CO3 1.52 mmol/L (1.05-1.35); ARTERIAL BLOOD HCO3 24.6 mmol/L (20-24); ARTERIAL BLOOD PCO2 50.6 mmHg (35-45); ARTERIAL BLOOD PO2 66.2 mmHg (80-100); ARTERIAL BLOOD TOTAL CO2 26.1 mmol/L (21-25)
[2018-10-20 07:58] LABS: ARTERIAL BLOOD FIO2 50%
[2018-10-20] MEDS ORDERED: FUROSEMIDE INJ/PF 40 MG/4 ML SDV ONE (08:31)
--- NOTE | 2018-10-20 09:44 | RADIOLOGY REPORT (SQ) ---
EXAM DESCRIPTION: CHEST SINGLE VIEW COMPLETED DATE/TIME: 10/20/2018 9:11 am REASON FOR STUDY: resp. distress COMPARISON: Chest films 04/03/2018, 10/18/2018 EXAM PARAMETERS: NUMBER OF VIEWS: One view. TECHNIQUE: Single frontal radiographic view of the chest acquired. RADIATION DOSE: NA LIMITATIONS: Rotated towards the FAROESE position FINDINGS: LUNGS AND PLEURA: Diffuse alveolar and interstitial pulmonary edema with bilateral pleural effusions from fluid overload/congestive failure. MEDIASTINUM AND HILAR STRUCTURES: No masses. Contour normal. HEART AND VASCULAR STRUCTURES: Massive cardiomegaly, old sternotomy and CABG BONES: No acute findings. HARDWARE: Left-sided pacemaker OTHER: No other significant finding. IMPRESSION: Alveolar and interstitial edema with bilateral pleural effusions. Massive cardiomegaly. Old sternotomy and CABG TECHNICAL DOCUMENTATION: JOB ID: [id number] [employer]- All Rights Reserved Reading location - IP/workstation name: [email or web address]
[2018-10-20] MEDS ORDERED: NYSTATIN TOPICAL POWDER 15 GM TP SCH (10:00)
[2018-10-20] MEDS ORDERED: ENOXAPARIN SODIUM INJ 80 MG/0.8 ML DISP.SYRIN SUBCUT SCH (10:00)
[2018-10-20] MEDS: DOCUSATE SODIUM 100 MG CAPSULE PO SCH (10:33)
[2018-10-20] MEDS: FAMOTIDINE 20 MG TABLET PO SCH (10:34)
[2018-10-20] MEDS: DEXTROSE 5%-WATER 500 ML with AMIODARONE HCL 900 MG IV PRN ×2 (10:34)
[2018-10-20] MEDS ORDERED: HYALURONIDASE INJ 150 UNIT/1 ML VIAL INJ PRN (11:07)
[2018-10-20] MEDS ORDERED: HYALURONIDASE INJ 150 UNIT/1 ML VIAL SUBCUT PRN (11:08)
[2018-10-20] MEDS ORDERED: PROPOFOL INJ 200 MG/20 ML VIAL IV ONE (13:13)
--- NOTE | 2018-10-20 13:59 | PDOC PROGRESS REPORT ---
Subjective Progress Note for:: 10/20/18 Reason For Visit: ATRIAL FIBRILLATION WITH RAPID VENTRICULAR Physical Exam Vital Signs: Temp Pulse Resp BP Pulse Ox 98.2 F 92 24 H 124/71 100 10/20/18 05:55 10/19/18 21:14 10/20/18 12:00 10/20/18 07:03 10/20/18 12:00 Intake & Output 10/19/18 10/20/18 10/21/18 06:59 06:59 06:59 Intake Total 1012 1306 275 Output Total 510 Balance 1012 796 275 Weight 70.76 kg 74.1 kg Results Laboratory Results: 10/20/18 04:08 10/20/18 04:08 10/20/18 10/20/18 10/20/18 04:08 04:08 04:30 WBC 7.6 RBC 3.94 Hgb 10.4 L Hct 32.9 L MCV 84 MCH 26.4 L MCHC 31.6 L RDW 19.5 H Plt Count 210 Carbonic Acid 1.65 H HCO3/H2CO3 Ratio 15:1 ABG pH 7.28 L ABG pCO2 54.8 H ABG pO2 71.9 L ABG HCO3 25.2 H ABG O2 Saturation 92.3 L ABG Base Excess -2.1 FiO2 6LVM Sodium 139.4 Potassium 4.8 Chloride 109 H Carbon Dioxide 26 Anion Gap 4 L BUN 28 H Creatinine 0.89 Est GFR ( Amer) > 60 Est GFR (Non-Af Amer) > 60 Glucose 79 Calcium 8.5 Magnesium 2.0 10/20/18 07:35 WBC RBC Hgb Hct MCV MCH MCHC RDW Plt Count Carbonic Acid 1.52 H HCO3/H2CO3 Ratio 16:1 ABG pH 7.30 L ABG pCO2 50.6 H ABG pO2 66.2 L ABG HCO3 24.6 H ABG O2 Saturation 91.0 L ABG Base Excess -2.1 FiO2 50% Sodium Potassium Chloride Carbon Dioxide Anion Gap BUN Creatinine Est GFR ( Amer) Est GFR (Non-Af Amer) Glucose Calcium Magnesium 10/18/18 10/18/18 10/18/18 19:45 23:30 23:30 Creatine Kinase < 20 L CK-MB (CK-2) 0.61 Troponin I 0.019 0.023 NT-Pro-B Natriuret Pep 44114 H 01/26/19 01/26/19 01/26/19 05:40 05:40 12:19 Creatine Kinase < 20 L < 20 L CK-MB (CK-2) 0.62 Troponin I 0.021 NT-Pro-B Natriuret Pep 10/19/18 12:19 Creatine Kinase CK-MB (CK-2) 0.70 Troponin I 0.015 NT-Pro-B Natriuret Pep Impressions: Shoulder X-Ray 10/18/18 19:41 IMPRESSION: Osteopenia. Old humeral fracture deformity. Degenerative change. copyright 2010 [employer]- All Rights Reserved Head CT 10/19/18 00:00 IMPRESSION: CHRONIC CHANGES OF ATROPHY AND MICROVASCULAR ISCHEMIA. NO ACUTE PROCESS. EVIDENCE OF ACUTE STROKE: NO. Chest X-Ray 10/20/18 00:00 IMPRESSION: Alveolar and interstitial edema with bilateral pleural effusions. Massive cardiomegaly. Old sternotomy and CABG Assessment & Plan - Diagnosis (1) Atrial fibrillation with rapid ventricular response Is this a current diagnosis for this admission?: Yes (2) Hypotension Qualifiers: Hypotension type: other hypotension type Qualified Code(s): I95.89 - Other hypotension Is this a current diagnosis for this admission?: Yes (3) Altered mental status Qualifiers: Altered mental status type: unspecified Qualified Code(s): R41.82 - Altered mental status, unspecified (4) Alzheimer's dementia without behavioral disturbance Qualifiers: Alzheimer's disease onset: unspecified onset Qualified Code(s): G30.9 - Alzheimer's disease, unspecified; F02.80 - Dementia in other diseases classified elsewhere without behavioral disturbance Is this a current diagnosis for this admission?: Yes (5) Congestive heart failure (CHF) Qualifiers: Heart failure type: unspecified Heart failure chronicity: chronic Qualified Code(s): I50.9 - Heart failure, unspecified Is this a current diagnosis for this admission?: Yes - Notes Notes: Procedure notesynchronized DC cardioversion Date of procedure 10/20/2018 Indication-symptomatic atrial fibrillation with rapid ventricular rate in cardiac output state Informed consent was obtained from patient's spouse for electrical DC cardioversion and risks/benefits of procedure were explained including risk of arrhythmias, embolic events including school stroke and . Patient's spouse verbalized understanding of risks/benefits and signed consent form for cardioversion. Patient was sedated by ASPEN Gomez for anesthesia with propofol 5 mg and 200 J DC current applied with successful cardioversion to sinus rhythm. Postprocedure EKG was ordered. Patient tolerated the procedure well. Hakeem Conn MD
--- NOTE | 2018-10-20 14:07 | PDOC PROGRESS REPORT ---
Subjective Progress Note for:: 10/20/18 Subjective:: Patient more alert today but now on BiPAP for shortness of breath. Patient was given IV Lasix this morning and has put out more than 500 cc of urine since then. She converted back into atrial fibrillation and her ventricular rate control has been very volatile all day. Reason For Visit: ATRIAL FIBRILLATION WITH RAPID VENTRICULAR Physical Exam Vital Signs: Temp Pulse Resp BP Pulse Ox 98.2 F 92 24 H 124/71 100 10/20/18 05:55 10/19/18 21:14 10/20/18 12:00 10/20/18 07:03 10/20/18 12:00 Intake & Output 10/19/18 10/20/18 10/21/18 06:59 06:59 06:59 Intake Total 1012 1306 275 Output Total 510 Balance 1012 796 275 Weight 70.76 kg 74.1 kg General appearance: PRESENT: mild distress, other - Patient on BiPAP Neck exam: PRESENT: JVD Respiratory exam: PRESENT: accessory muscle use, decreased breath sounds, rales Cardiovascular exam: PRESENT: irregular rhythm, tachycardia Gentrourinary exam: PRESENT: other Extremities exam: PRESENT: other - Left arm tenderness and swelling at site of previous IV. Neurological exam: PRESENT: awake Psychiatric exam: PRESENT: anxious Results Laboratory Results: 10/20/18 04:08 10/20/18 04:08 10/20/18 10/20/18 10/20/18 04:08 04:08 04:30 WBC 7.6 RBC 3.94 Hgb 10.4 L Hct 32.9 L MCV 84 MCH 26.4 L MCHC 31.6 L RDW 19.5 H Plt Count 210 Carbonic Acid 1.65 H HCO3/H2CO3 Ratio 15:1 ABG pH 7.28 L ABG pCO2 54.8 H ABG pO2 71.9 L ABG HCO3 25.2 H ABG O2 Saturation 92.3 L ABG Base Excess -2.1 FiO2 6LVM Sodium 139.4 Potassium 4.8 Chloride 109 H Carbon Dioxide 26 Anion Gap 4 L BUN 28 H Creatinine 0.89 Est GFR ( Amer) > 60 Est GFR (Non-Af Amer) > 60 Glucose 79 Calcium 8.5 Magnesium 2.0 10/20/18 07:35 WBC RBC Hgb Hct MCV MCH MCHC RDW Plt Count Carbonic Acid 1.52 H HCO3/H2CO3 Ratio 16:1 ABG pH 7.30 L ABG pCO2 50.6 H ABG pO2 66.2 L ABG HCO3 24.6 H ABG O2 Saturation 91.0 L ABG Base Excess -2.1 FiO2 50% Sodium Potassium Chloride Carbon Dioxide Anion Gap BUN Creatinine Est GFR ( Amer) Est GFR (Non-Af Amer) Glucose Calcium Magnesium 10/18/18 10/18/18 10/18/18 19:45 23:30 23:30 Creatine Kinase < 20 L CK-MB (CK-2) 0.61 Troponin I 0.019 0.023 NT-Pro-B Natriuret Pep 82201 H 10/19/18 10/19/18 10/19/18 05:40 05:40 12:19 Creatine Kinase < 20 L < 20 L CK-MB (CK-2) 0.62 Troponin I 0.021 NT-Pro-B Natriuret Pep 10/19/18 12:19 Creatine Kinase CK-MB (CK-2) 0.70 Troponin I 0.015 NT-Pro-B Natriuret Pep Impressions: Shoulder X-Ray 10/18/18 19:41 IMPRESSION: Osteopenia. Old humeral fracture deformity. Degenerative change. copyright 2010 [employer]- All Rights Reserved Head CT 10/19/18 00:00 IMPRESSION: CHRONIC CHANGES OF ATROPHY AND MICROVASCULAR ISCHEMIA. NO ACUTE PROCESS. EVIDENCE OF ACUTE STROKE: NO. Chest X-Ray 10/20/18 00:00 IMPRESSION: Alveolar and interstitial edema with bilateral pleural effusions. Massive cardiomegaly. Old sternotomy and CABG Assessment & Plan - Diagnosis (1) Atrial fibrillation with rapid ventricular response Is this a current diagnosis for this admission?: Yes (2) Hypotension Qualifiers: Hypotension type: other hypotension type Qualified Code(s): I95.89 - Other hypotension Is this a current diagnosis for this admission?: Yes (3) Altered mental status Qualifiers: Altered mental status type: unspecified Qualified Code(s): R41.82 - Altered mental status, unspecified (4) Alzheimer's dementia without behavioral disturbance Qualifiers: Alzheimer's disease onset: unspecified onset Qualified Code(s): G30.9 - Al zheimer's disease, unspecified; F02.80 - Dementia in other diseases classified elsewhere without behavioral disturbance Is this a current diagnosis for this admission?: Yes (5) Congestive heart failure (CHF) Qualifiers: Heart failure type: unspecified Heart failure chronicity: chronic Qualified Code(s): I50.9 - Heart failure, unspecified Is this a current diagnosis for this admission?: Yes - Notes Notes: 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 We decided to proceed with another cardioversion to maintain hemodynamic stability in addition to continued IV amiodarone and discussed need for transfer to a [facility] with advanced heart failure facilities with the family. Patient's family not keen on patient going to previous cardiology team at [place] and requested transfer to [facility] in [place]. Case was discussed with Dr. Ramirez, putty remover at [facility] who has accepted patient for transfer to their ICU for continued management of her heart failure with atrial fibrillation with volatile heart rate control. Spoke at length with the patient's family about plan for transplant and they are agreeable for patient to go to [place]. Patient had likely extravasation from her left arm IV and has been treated for it per protocol. - Time Time with patient: Greater than 35 minutes
--- NOTE | 2018-10-20 14:25 | PDOC TRANSFER SUMMARY ---
General Admission Date/PCP: 10/18/18 23:36 JONY KENT MD Transfer Date: 10/20/18 Accepting Facility: [facility] Resuscitation Status: Full Code - Transfer Diagnosis (1) Atrial fibrillation with rapid ventricular response Is this a current diagnosis for this admission?: Yes Diagnosis Summary: She came in with atrial fibrillation with RVR, had a history of atrial fibrillation and was on metoprolol and diltiazem at home. The patient has a history of dementia and has not been any shape to give history anyway, and her is also a very poor historian. She had been apparently having some worsening dyspnea over the course of the day. Her heart rate was in the 140s and 150s on presentation, and she was hypotensive. We gave her some IV fluids because of her blood pressure, we did not want to use metoprolol or diltiazem, so we gave her digoxin. This did not do very much to help her heart rate. Her pressures remained stable but they did not really go up much above a systolic of 100, but she did fairly consistently maintain a MAP of 60 or greater. An amiodarone drip was added, but this also did not make much of a difference in her rate. Cardiology was consulted, and the patient ultimately wound up having elective cardioversion last night. She is on anticoagulation; she does not appear to have been on any at home. She had no evidence of a stroke or hemorrhage on head CT. She was moved to the ICU for closer monitoring. She did well while she stayed in a sinus rhythm, and her blood pressures did improve, but not long ago she went back into [facility] with RVR and had to be cardioverted again. Cardiology has arranged transfer to [facility]. (2) Hypotension Is this a current diagnosis for this admission?: Yes Diagnosis Summary: Secondary to the above. We could not use her metoprolol or Cardizem that she was on at home to control her rate because of her blood pressures. Her blood pressure improved when she was cardioverted back into a sinus rhythm, but she is not consistently staying in a sinus rhythm now and has required cardioversion again. We gave her IV fluids to try to get her pressure up in the hopes that it would help improve her heart rate, but she ultimately wound up decompensating and started third spacing fluid and developing pulmonary edema and so we had to stop her IV fluids and give her a dose of Lasix to help with her breathing. We put her on BiPAP to help with her breathing. (3) Alzheimer's dementia without behavioral disturbance Is this a current diagnosis for this admission?: Yes Diagnosis Summary: She is been encephalopathic the whole time she is been here, so I am not certain what her baseline mental status is. Her is not a very good historian we have had no other contact with any other family. - Transfer Medications Home Medications: Albuterol Sulfate [Proair Hfa Inhalation Aerosol 8.5 gm Mdi] 1 puff IH Q6HP PRN 10/19/18 Alendronate Sodium [Fosamax 70 mg Tablet] 70 mg PO DAVID@0600 10/19/18 Aspirin [Ecotrin 325 mg EC Tablet] 325 mg PO DAILY 10/19/18 Atorvastatin Calcium [Lipitor 40 mg Tablet] 40 mg PO QHS 10/19/18 Citalopram Hydrobromide [Citalopram HBr] 20 mg PO DAILY 10/19/18 Diltiazem HCl [Cartia Xt] 180 mg PO Q12 10/19/18 Donepezil HCl [Aricept] 10 mg PO QHS 10/19/18 Furosemide [Lasix 40 mg Tablet] 40 mg PO QAM 10/19/18 Insulin Glargine,Hum.rec.anlog [Basaglar Kwikpen U-100] 44 unit SQ DAILY 10/19/18 Liraglutide [Victoza 2-Mervin] 1.8 mg SQ DAILY 10/19/18 Losartan Potassium [Cozaar 50 mg Tablet] 50 mg PO DAILY 10/19/18 Metformin HCl [Glucophage XR 500 mg Tablet] 1,000 mg PO BIDBS 10/19/18 Metoprolol Tartrate [Lopressor 50 mg Tablet] 50 mg PO Q12 10/19/18 Potassium Chloride [Klor-Con 10 Meq Capsule ER] 20 meq PO Q12 10/19/18 Transfer Medications: Current Medications Acetaminophen (Tylenol 325 Mg Tablet) 650 mg PO Q4HP PRN PRN Reason: For headache, pain or fever Stop: 11/17/18 23:24 Al Hydrox/Mg Hydrox/Simethicone (Maalox Plus Susp 30 Udcup) 30 ml PO Q6HP PRN PRN Reason: HEARTBURN Stop: 11/17/18 23:17 Chlorpromazine HCl (Thorazine Inj 25 Mg/1 Ml Ampule) 12.5 mg IV Q8HP PRN PRN Reason: AGITATION Stop: 11/19/18 03:17 Last Admin: 10/20/18 03:30 Dose: 12.5 mg Documented by: Dextrose (Dextrose Inj 50% Syringe (25 Gm/50 Ml)) 12.5 gm IV PRN PRN; Protocol PRN Reason: FOR BG 50-69 IN ALERT PATIENT Stop: 11/18/18 19:29 Last Admin: 10/19/18 19:04 Dose: 12.5 gm Documented by: Dextrose (Dextrose Inj 50% Syringe (25 Gm/50 Ml)) 25 gm IV PRN PRN; Protocol Stop: 11/18/18 19:29 Docusate Sodium (Colace 100 Mg Capsule) 100 mg PO BID [facility] Stop: 11/18/18 09:59 Last Admin: 10/20/18 10:33 Dose: Not Given Documented by: Enoxaparin Sodium (Lovenox Inj 80 Mg/0.8 Ml Disp.Syrin) 75 mg SUBCUT Q12 [facility] Stop: 11/19/18 09:59 Last Admin: 10/20/18 10:31 Dose: 75 mg Documented by: Famotidine (Pepcid 20 Mg Tablet) 20 mg PO Q12 [facility] Stop: 11/18/18 09:59 Last Admin: 10/20/18 10:34 Dose: Not Given Documented by: Glucagon (Glucagen Inj 1 Mg Vial) 1 mg IM PRN PRN; Protocol PRN Reason: EVALUATE FOR BG < 70 Stop: 11/18/18 19:29 Glucose (Glutose 40% Gel 15 Gm Tube) 15 gm PO PRN PRN; Protocol PRN Reason: FOR BG 50-69 IN ALERT PATIENT Stop: 11/18/18 19:29 Glucose (Glutose 40% Gel 15 Gm Tube) 30 gm PO PRN PRN; Protocol PRN Reason: FOR BG < 50 IN ALERT PATIENT Stop: 11/18/18 19:29 Hyaluronidase (Amphadase Inj 150 Unit/1 Ml Vial) 60 unit INJ .X1 PRN PRN Reason: VIA IV CATHETER Stop: 10/20/18 23:59 Last Admin: 10/20/18 11:31 Dose: 60 unit Documented by: Hyaluronidase (Amphadase Inj 150 Unit/1 Ml Vial) 30 unit SUBCUT .X5 PRN PRN Reason: INFILTRATED IV SITE Stop: 10/20/18 23:59 Last Admin: 10/20/18 11:30 Dose: 30 unit Documented by: Amiodarone HCl 900 mg/ (Dextrose) 500 mls @ 0 mls/hr IV CONTINUOUS PRN; Protocol PRN Reason: THIS MED IS NOT "PRN" Stop: 10/22/18 11:14 Last Admin: 10/20/18 10:34 Dose: 16.66 mls/hr Documented by: Insulin Human Lispro (Humalog Insulin 100 Unit/1 Ml 3 Ml Vial) 0 - 12 unit SUBCUT Q6HP PRN; Protocol PRN Reason: PER PROTOCOL Stop: 11/18/18 19:01 Magnesium Hydroxide (Milk Of Magnesia 30 Ml Udcup) 30 ml PO HSP PRN PRN Reason: FOR CONSTIPATION Stop: 11/17/18 23:17 Metoprolol Tartrate (Lopressor Inj/Pf 5 Mg/5 Ml Sdv) 5 mg IV Q6HP PRN PRN Reason: HR > 110 Stop: 11/18/18 14:31 Last Admin: 10/20/18 10:29 Dose: 5 mg Documented by: Morphine Sulfate (Morphine 10 Mg/Ml Inj) 2 mg IV Q2HP PRN PRN Reason: FOR PAIN SCALE 1-2 Stop: 10/25/18 23:24 Morphine Sulfate (Morphine 10 Mg/Ml Inj) 3 mg IV Q2HP PRN PRN Reason: FOR PAIN SCALE 3-4 Stop: 10/25/18 23:24 Morphine Sulfate (Morphine 10 Mg/Ml Inj) 4 mg IV Q2HP PRN PRN Reason: PAIN SCALE OF 5 Stop: 10/25/18 23:24 Nicotine (Nicoderm 21 Mg/24 Hr Transderm Patch) 1 each TD DAILYP PRN PRN Reason: WITHDRAWAL SYMPTOMS Stop: 11/17/18 23:24 Nystatin (Mycostatin Topical Powder 15 Gm) 1 applic TP BID MARTINA Stop: 10/27/18 09:59 Ondansetron HCl (Zofran Inj/Pf 4 Mg/2 Ml Sdv) 4 mg IV Q4HP PRN PRN Reason: FOR NAUSEA/VOMITING Stop: 11/17/18 23:17 Ondansetron HCl (Zofran Odt 4 Mg Tablet) 4 mg PO Q4HP PRN PRN Reason: FOR NAUSEA/VOMITING Stop: 11/17/18 23:17 Simvastatin (Zocor 40 Mg Tablet) 40 mg PO QHS [facility] Stop: 11/18/18 21:59 Last Admin: 10/19/18 21:49 Dose: Not Given Documented by: Sodium Chloride (Saline Flush 2.5 Ml Monoject Prefil Syrin) 2.5 ml IV Q8 MARTINA Stop: 11/18/18 05:59 Last Admin: 10/20/18 06:05 Dose: 2.5 ml Documented by: - Allergies Allergies/Adverse Reactions: No Known Allergies Allergy (Unverified 08/03/11 20:09) Hospital Course Hospital Course: As noted above, this is a 78-year-old female with a history of dementia and atrial fibrillation who also 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 She had progressive shortness of breath over the course of the day and then presented to the ER as detailed above. In addition to the details lis chapito above regarding her atrial fibrillation and its course during this hospitalization, the main issue that she had was hypotension which precluded the use of beta-blockers and calcium channel blockers, and the need for IV fluids in an attempt to get her pressure up, which ultimately put her into heart failure because of her inadequate circulation. At time of transfer, her rate controlling agents are digoxin and amiodarone drip. As noted above, she has been cardioverted twice, most recently about an hour prior to the time of this dictation. The first time was last night. She was initially maintaining her oxygen saturations with a nasal cannula, but we put her on BiPAP this morning because she just looked like she was not having effective ventilation, and indeed her PCO2 was starting to trend up. Her breathing has settled down since starting BiPAP and she does not appear tachypneic at this time. Our teacher adventure education Dr. Conn has spoken with the cardiology service at [facility] and arranged for her to be transferred for higher level of care and possible AV alberto ablation. Physical Exam Vital Signs: Temp Pulse Resp BP Pulse Ox 98.2 F 92 24 H 124/71 100 10/20/18 05:55 10/19/18 21:14 10/20/18 12:00 10/20/18 07:03 10/20/18 12:00 Intake & Output 10/19/18 10/20/18 10/21/18 06:59 06:59 06:59 Intake Total 1012 1306 275 Output Total 510 Balance 1012 796 275 Weight 70.76 kg 74.1 kg General appearance: PRESENT: disheveled, other - moderate distress Neck exam: PRESENT: full ROM. ABSENT: carotid bruit, JVD, lymphadenopathy, meni ngismus, tenderness, thyromegaly Respiratory exam: PRESENT: crackles, decreased breath sounds, rhonchi, symmetrical, tachypnea. ABSENT: accessory muscle use, chest wall tenderness, prolonged expiratory phas, retraction, stridor, unlabored, wheezes Cardiovascular exam: PRESENT: irregular rhythm, tachycardia Pulses: PRESENT: normal carotid pulses - Irregular but palpable Vascular exam: PRESENT: normal capillary refill GI/Abdominal exam: PRESENT: hypoactive bowel sounds, soft. ABSENT: distended, guarding, rebound, tenderness Extremities exam: PRESENT: pedal edema, +1 edema. ABSENT: clubbing Musculoskeletal exam: PRESENT: normal inspection. ABSENT: deformity Neurological exam: PRESENT: altered - Encephalopathic, awake. ABSENT: oriented to person, oriented to place, oriented to situation Psychiatric exam: PRESENT: flat affect Skin exam: PRESENT: dry, warm, other - She is beginning to look dusky Results Laboratory Results: 10/20/18 04:08 10/20/18 04:08 10/20/18 10/20/18 10/20/18 04:08 04:08 04:30 WBC 7.6 RBC 3.94 Hgb 10.4 L Hct 32.9 L MCV 84 MCH 26.4 L MCHC 31.6 L RDW 19.5 H Plt Count 210 Carbonic Acid 1.65 H HCO3/H2CO3 Ratio 15:1 ABG pH 7.28 L ABG pCO2 54.8 H ABG pO2 71.9 L ABG HCO3 25.2 H ABG O2 Saturation 92.3 L ABG Base Excess -2.1 FiO2 6LVM Sodium 139.4 Potassium 4.8 Chloride 109 H Carbon Dioxide 26 Anion Gap 4 L BUN 28 H Creatinine 0.89 Est GFR ( Amer) > 60 Est GFR (Non-Af Amer) > 60 Glucose 79 Calcium 8.5 Magnesium 2.0 10/20/18 07:35 WBC RBC Hgb Hct MCV MCH MCHC RDW Plt Count Carbonic Acid 1.52 H HCO3/H2CO3 Ratio 16:1 ABG pH 7.30 L ABG pCO2 50.6 H ABG pO2 66.2 L ABG HCO3 24.6 H ABG O2 Saturation 91.0 L ABG Base Excess -2.1 FiO2 50% Sodium Potassium Chloride Carbon Dioxide Anion Gap BUN Creatinine Est GFR ( Amer) Est GFR (Non-Af Amer) Glucose Calcium Magnesium 10/18/18 10/18/18 10/18/18 19:45 23:30 23:30 Creatine Kinase < 20 L CK-MB (CK-2) 0.61 Troponin I 0.019 0.023 NT-Pro-B Natriuret Pep 42061 H 10/19/18 10/19/18 10/19/18 05:40 05:40 12:19 Creatine Kinase < 20 L < 20 L CK-MB (CK-2) 0.62 Troponin I 0.021 NT-Pro-B Natriuret Pep 10/19/18 12:19 Creatine Kinase CK-MB (CK-2) 0.70 Troponin I 0.015 NT-Pro-B Natriuret Pep Impressions: Shoulder X-Ray 10/18/18 19:41 IMPRESSION: Osteopenia. Old humeral fracture deformity. Degenerative change. copyright 2011 [employer]- All Rights Reserved Head CT 10/19/18 00:00 IMPRESSION: CHRONIC CHANGES OF ATROPHY AND MICROVASCULAR ISCHEMIA. NO ACUTE PROCESS. EVIDENCE OF ACUTE STROKE: NO. Chest X-Ray 10/20/18 00:00 IMPRESSION: Alveolar and interstitial edema with bilateral pleural effusions. Massive cardiomegaly. Old sternotomy and CABG
--- NOTE | 2018-10-21 07:23 | EKG REPORT ---
SEVERITY:- ABNORMAL ECG - EXTREME TACHYCARDIA WITH WIDE COMPLEX, MOST LIKELY ATRIAL FIBRILLATION WITH LBBB : Confirmed by: Yuliana Burgess MD 21-Oct-2018 07:22:45
== END 2018-10-20 15:44 | disposition short-term general hospital (02) | DRG 310 ==
LOC: ER 18:33 → EH 23:36 → 3N 10-19 15:37 → ICU 10-19 20:10
PROVIDERS: ADMIT Emergency Medicine; ATTEND Emergency Medicine
PROC: 5A2204Z Restoration of Cardiac Rhythm, Single (ICD-10-PCS; principal; 2018-10-19)
PROC: 5A09357 Assistance with Respiratory Ventilation, Less than 24 Consecutive Hours, Continuous Positive Airway Pressure (ICD-10-PCS; 2018-10-20)
DX: I48.0 Paroxysmal atrial fibrillation (principal); I48.2 Chronic atrial fibrillation; G30.9 Alzheimer's disease, unspecified; F02.80 Dementia in other diseases classified elsewhere, unspecified severity, without behavioral disturbance, psychotic disturbance, mood disturbance, and anxiety; E78.00 Pure hypercholesterolemia, unspecified; I11.0 Hypertensive heart disease with heart failure; I50.9 Heart failure, unspecified; J44.9 Chronic obstructive pulmonary disease, unspecified; F32.9 Major depressive disorder, single episode, unspecified; E11.9 Type 2 diabetes mellitus without complications; I95.89 Other hypotension; I44.7 Left bundle-branch block, unspecified; Z79.82 Long term (current) use of aspirin; Z79.899 Other long term (current) drug therapy; Z95.1 Presence of aortocoronary bypass graft; Z95.5 Presence of coronary angioplasty implant and graft; Z95.0 Presence of cardiac pacemaker; Z90.5 Acquired absence of kidney; Z87.891 Personal history of nicotine dependence; Z82.49 Family history of ischemic heart disease and other diseases of the circulatory system
CPT/HCPCS: 00410; 36415; 70450; 71045; 80048; 80053; 80061; 80162; 81001; 82550; 82553; 82803; 82962; 83735; 83880; 84439; 84443; 84481; 84484; 85025; 85027; 87070; 87077; 87205; 93005; 93010; 93306; 94660; 99291; J0282; J1160; J1644; J1650; J1940; J2250; J3230; J3470; J3490; J7030; J7060; J7120

== ENCOUNTER 2018-11-05 13:32 | Emergency (ER) | payer MEDICARE, BC ==
--- NOTE | 2018-11-05 13:40 | ER Document Report ---
ED General - General Chief Complaint: Fall Stated Complaint: FALL Time Seen by Provider: 11/05/18 13:38 Primary Care Provider: JONY KENT MD [Primary Care Provider] - Follow up as needed Mode of Arrival: Medic Information source: Patient, Emergency Med Personnel Notes: This is a 78-year-old female with a history of dementia that is a resident of [facility] who was brought in by EMS after a fall at the nursing facility. EMS reports that the patient either fell or slipped off the bed while trying to get out of bed. Staff denies that there was any head injury. Patient has been without complaints. Patient's daughter is at the bedside and is concerned because the patient was recently placed on anticoagulation for atrial fibrillation. The daughter states that she had heard the patient had hit her head from staff at the long-term. TRAVEL OUTSIDE OF THE [place] IN LAST 30 DAYS: No - HPI Onset: Just prior to arrival Onset/Duration: Sudden Quality of pain: No pain Severity: None Pain Level: Denies Associated symptoms: denies: Chest pain, Nausea, Vomiting, Shortness of breath Exacerbated by: Denies Relieved by: Denies Similar symptoms previously: No Recently seen / treated by doctor: No - Related Data Allergies/Adverse Reactions: No Known Allergies Allergy (Unverified 08/03/11 20:09) Past Medical History - General Information source: Patient, Relative, Transfer Record, Emergency Med Personnel - Social History Smoking Status: Unknown if Ever Smoked Cigarette use (# per day): No Chew tobacco use (# tins/day): No Frequency of alcohol use: None Drug Abuse: None Lives with: Alf Family History: Reviewed & Not Pertinent, Hypertension - Her mother and her mother's side of the family Patient has suicidal ideation: No Patient has homicidal ideation: No - Past Medical History Cardiac Medical History: Reports: Hx Atrial Fibrillation, Hx Congestive Heart F ailure, Hx Hypercholesterolemia, Hx Hypertension Pulmonary Medical History: Reports: Hx COPD Denies: Hx Asthma, Hx Sleep Apnea Neurological Medical History: Denies: Hx Seizures Endocrine Medical History: Reports: Hx Diabetes Mellitus Type 2. Denies: Hx Diabetes Mellitus Type 1, Hx Hyperthyroidism, Hx Hypothyroidism Renal/ Medical History: Denies: Hx Peritoneal Dialysis GI Medical History: Denies: Hx Cirrhosis, Hx Hepatitis Musculoskeletal Medical History: Denies Hx Arthritis, Denies Hx Gout Skin Medical History: Denies Hx Eczema, Denies Hx Psoriasis Psychiatric Medical History: Reports: Hx Dementia, Hx Depression Infectious Medical History: Denies: Hx Hepatitis Past Surgical History: Reports: Hx Appendectomy, Hx Breast Surgery, Hx Cardiac Catheterization, Hx Section, Hx Coronary Artery Bypass Graft, Hx Coronary Stent, Hx Gynecologic Surgery - oophorectomy, Hx Orthopedic Surgery - Bilateral forearm fractures requiring open reduction and internal fixation, Hx Pacemaker, Other - Nephrectomy - Immunizations Hx Diphtheria, Pertussis, Tetanus Vaccination: Yes Review of Systems - Review of Systems Constitutional: denies: Chills, Fever EENT: No symptoms reported Cardiovascular: denies: Chest pain, Palpitations, Heart racing Respiratory: No symptoms reported Gastrointestinal: No symptoms reported Genitourinary: No symptoms reported Female Genitourinary: No symptoms reported Musculoskeletal: No symptoms reported Skin: No symptoms reported Hematologic/Lymphatic: No symptoms reported Neurological/Psychological: No symptoms reported Physical Exam - Vital signs Vitals: Temp Pulse Resp BP Pulse Ox 98.2 F 81 18 109/54 L 96 11/05/18 13:38 11/05/18 13:38 11/05/18 13:38 11/05/18 13:38 11/05/18 13:38 Notes: Physical exam: GENERAL: Patient is alert and in no acute distress. She does have dementia. She denies any pain at this time. HEAD: Atraumatic, normocephalic. Old scar above the right eyebrow. EYES: Pupils equal round and reactive to light, extraocular movements intact, sclera anicteric, conjunctiva are normal. ENT: TMs normal, nares patent, oropharynx clear without exudates. Moist mucous membranes. NECK: Cervical spine tenderness. Normal range of motion, supple without obvious mass or JVD. LUNGS: Breath sounds clear to auscultation bilaterally and equal. No wheezes rales or rhonchi. HEART: Regular rate and rhythm without murmurs, rubs or gallops. ABDOMEN: Soft, normoactive bowel sounds. No tenderness to palpation. No g uarding, no rebound. No masses appreciated. Pelvis: Stable. EXTREMITIES: Good range of motion of both hips, no pitting or edema. No clubbing or cyanosis. NEUROLOGICAL: Cranial nerves II through XII grossly intact. Normal speech, moving all extremities. PSYCH: Normal mood, normal affect. SKIN: Warm, Dry, normal turgor, no rashes or lesions noted. Course - Re-evaluation Re-evalutation: 11/05/18 18:32 Note: This is a 78-year-old woman with dementia who was recently placed on anticoagulation for atrial fibrillation. The patient was sent to the emergency room for a fall. Patient apparently had slipped out of the bed (or her wheelchair by the bed). There is some debate as to whether the patient had hit her head (I have heard to contrasting accounts). In any event, the patient is alert and cooperative and in no distress. She denies pain at this time. Due to the concerns for possible head injury and the fact that she is on anticoagulation and she does have baseline dementia, head CT was performed which shows no evidence of bleeding. The plan will be for her to go back to the long-term. - Vital Signs Vital signs: Temp Pulse Resp BP Pulse Ox 98.1 F 80 18 110/93 H 97 11/05/18 17:48 11/05/18 17:48 11/05/18 13:38 11/05/18 17:48 11/05/18 17:48 - Diagnostic Test Radiology reviewed: Image reviewed, Reports reviewed - CT of the head shows no acute bleed Discharge - Discharge Clinical Impression: Musculoskeletal pain status post fall Condition: Stable Disposition: HOME, SELF-CARE Additional Instructions: The head CT today showed no evidence of bleed. The recommendations are to continue current medicines, fall precautions at the long-term. Return to the emergency room for any change in mental status or any increased pain or concerns that Ms. Thapa is not acting her usual baseline Referrals: JONY KENT MD [Primary Care Provider] - Follow up as needed
--- NOTE | 2018-11-05 15:15 | RADIOLOGY REPORT (SQ) ---
EXAM DESCRIPTION: CT HEAD WITHOUT COMPLETED DATE/TIME: 11/05/2018 3:06 pm REASON FOR STUDY: fall, on anticoagulation COMPARISON: None. TECHNIQUE: Axial images acquired through the brain without intravenous contrast. Images reviewed wi th bone, brain and subdural windows. Additional sagittal and coronal reconstructions were generated. Images stored on PACS. All CT scanners at this facility use dose modulation, iterative reconstruction, and/or weight based d osing when appropriate to reduce radiation dose to as low as reasonably achievable (ALARA). [facility]: Dose Right [facility]: CareDose [facility]: Dose Right [facility]: Teradose 4D [facility]: [employer] RADIATION DOSE: CT Rad equipment meets quality standard of care and radiation dose reduction techniq ues were employed. CTDIvol: 53.2 mGy. DLP: 991 mGy-cm.mGy. LIMITATIONS: None. FINDINGS: VENTRICLES: Prominent. CEREBRUM: No masses. No hemorrhage. No midline shift. Areas of low density in the white matter mos t likely due to chronic micro-vascular ischemic change. No evidence for acute infarction. CEREBELLUM: No masses. No hemorrhage. No alteration of density. No evidence for acute infarction. EXTRAAXIAL SPACES: Age-related involutional change. No fluid collections. No masses. ORBITS AND GLOBE: No intra- or extraconal masses. Normal contour of globe without masses. CALVARIUM: No fracture. PARANASAL SINUSES: No fluid or mucosal thickening. SOFT TISSUES: No mass or hematoma. OTHER: No other significant finding. IMPRESSION: CHRONIC CHANGES OF ATROPHY AND MICROVASCULAR ISCHEMIA. NO ACUTE PROCESS. EVIDENCE OF ACUTE STROKE: NO. TECHNICAL DOCUMENTATION: JOB ID: [id number] Quality ID # 436: Final reports with documentation of one or more dose reduction techniques (e.g., Au tomated exposure control, adjustment of the mA and/or kV according to patient size, use of iterative reconstruction technique) 2010 [employer]- All Rights Reserved Reading location - IP/workstation name: [email or web address]
[2018-11-05 17:49] VITALS: BP 110/93
== END 2018-11-05 18:10 | disposition home or self-care (01) ==
LOC: ER 13:32
DX: R52 Pain, unspecified (principal); W19.XXXA Unspecified fall, initial encounter; Y92.129 Unspecified place in nursing home as the place of occurrence of the external cause; I48.91 Unspecified atrial fibrillation; I10 Essential (primary) hypertension; J44.9 Chronic obstructive pulmonary disease, unspecified; E11.9 Type 2 diabetes mellitus without complications; F03.90 Unspecified dementia, unspecified severity, without behavioral disturbance, psychotic disturbance, mood disturbance, and anxiety
CPT/HCPCS: 70450; 99283

== ENCOUNTER 2018-11-28 22:04 | Emergency (ER) | payer MEDICARE, BC, OTHER ==
[2018-11-28 22:27] VITALS: BP 154/64
--- NOTE | 2018-11-28 23:10 | RADIOLOGY REPORT (SQ) ---
EXAM DESCRIPTION: XR SACRUM COCCYX 2 OR MORE VIEWS COMPLETED DATE/TME: 11/28/2018 22:30 CLINICAL HISTORY: 78 years, Female, fall COMPARISON: None. NUMBER OF VIEWS: 3 TECHNIQUE: 3 view sacrum/coccyx LIMITATIONS: None. FINDINGS: Osteopenia. Mild degenerative changes of the sacroiliac joints bilaterally. No evidence for sacrococcygeal fracture or subluxation. Degenerative change lumbar spine Vascular calcifications IMPRESSION: Osteopenia with degenerative change. No acute osseous abnormality copyright 2010 [employer]- All Rights Reserved
--- NOTE | 2018-11-28 23:11 | RADIOLOGY REPORT (SQ) ---
EXAM DESCRIPTION: XR PELVIS 1-2 VIEWS COMPLETED DATE/TME: 11/28/2018 22:30 CLINICAL HISTORY: 78 years, Female, fall COMPARISON: None. NUMBER OF VIEWS: 1 TECHNIQUE: AP pelvis LIMITATIONS: None. FINDINGS: Osteopenia. Negative for acute fracture or dislocation. Mild degenerative change of the hips bilaterally. Vascular calcifications IMPRESSION: Osteopenia with mild degenerative change copyright 2010 [employer] All Rights Reserved
--- NOTE | 2018-11-28 23:13 | RADIOLOGY REPORT (SQ) ---
EXAM DESCRIPTION: CT HEAD WITHOUT IV CONTRAST COMPLETED DATE/TME: 11/28/2018 22:41 CLINICAL HISTORY: 78 years, Female, trauma COMPARISON: 11/05/2018 CT brain TECHNIQUE: 185 Images stored on PACS. All CT scanners at this facility use dose modulation, iterative reconstruction, and/or weight based dosing when appropriate to reduce radiation dose to as low as reasonably achievable (ALARA). [facility]: Dose Right [facility]: CareDose [facility]: Dose Right [facility]: Teradose 4D [facility]: [employer] LIMITATIONS: None. FINDINGS: The globes are intact. The paranasal sinuses and mastoid air cells are unremarkable. No displaced or depressed skull fracture. No intra or extra-axial hemorrhage. CT is limited for evaluation of acute infarct. No CT evidence for large or territorial acute infarct. Diffuse atrophy with small vessel ischemic change. No mass or midline shift IMPRESSION: Atrophy with small vessel ischemic change. TECHNICAL DOCUMENTATION: Quality ID # 436: Final reports with documentation of one or more dose reduction techniques (e.g., Automated exposure control, adjustment of the mA and/or kV according to patient size, use of iterative reconstruction technique) copyright 2011 [employer]- All Rights Reserved
--- NOTE | 2018-11-28 23:23 | ER Document Report ---
ED General - General Chief Complaint: Fall Stated Complaint: FALL INJURY Time Seen by Provider: 11/28/18 22:15 Notes: Patient is a pleasant 78-year-old female with a history of dementia who presents from long term because of a fall. Patient complains of pain only in her tailbone region. Patient herself does not seem to remember the fall. Patient denies any pain other than over her tailbone. She denies a headache. She denies neck pain. No chest or abdominal pain. No extremity pain. Patient's daughter did call and speak with the nurse informed her that the long term informed her that she may have hit her head. Patient has no further concerns at this time. TRAVEL OUTSIDE OF THE [place] IN LAST 30 DAYS: No - Related Data Allergies/Adverse Reactions: No Known Allergies Allergy (Unverified 08/03/11 20:09) Past Medical History - Social History Smoking Status: Unknown if Ever Smoked Chew tobacco use (# tins/day): No Frequency of alcohol use: None Drug Abuse: None Family History: Reviewed & Not Pertinent, Hypertension - Her mother and her mother's side of the family Patient has suicidal ideation: No Patient has homicidal ideation: No - Past Medical History Cardiac Medical History: Reports: Hx Atrial Fibrillation, Hx Congestive Heart Failure, Hx Hypercholesterolemia, Hx Hypertension Pulmonary Medical History: Reports: Hx COPD Denies: Hx Asthma, Hx Sleep Apnea Neurological Medical History: Denies: Hx Seizures Endocrine Medical History: Reports: Hx Diabetes Mellitus Type 2. Denies: Hx Diabetes Mellitus Type 1, Hx Hyperthyroidism, Hx Hypothyroidism Renal/ Medical History: Denies: Hx Peritoneal Dialysis GI Medical History: Denies: Hx Cirrhosis, Hx Hepatitis Musculoskeletal Medical History: Denies Hx Arthritis, Denies Hx Gout Skin Medical History: Denies Hx Eczema, Denies Hx Psoriasis Psychiatric Medical History: Reports: Hx Dementia, Hx Depression Infectious Medical History: Denies: Hx Hepatitis Past Surgical History: Reports: Hx Appendectomy, Hx Breast Surgery, Hx Cardiac Catheterization, Hx Section, Hx Coronary Artery Bypass Graft, Hx Coronary Stent, Hx Gynecologic Surgery - oophorectomy, Hx Orthopedic Surgery - Bilateral forearm fractures requiring open reduction and internal fixation, Hx Pacemaker, Other - Nephrectomy - Immunizations Hx Diphtheria, Pertussis, Tetanus Vaccination: Yes Review of Systems - Review of Systems Notes: My Normal Review Basic REVIEW OF SYSTEMS: CONSTITUTIONAL : Denies fever, chills, or sweats. Denies recent illness. EENT: Denies eye, ear, throat, or mouth pain or symptoms. Denies nasal or sinus congestion. CARDIOVASCULAR: Denies chest pain. RESPIRATORY: Denies cough, cold, or chest congestion. Denies shortness of breath, difficulty breathing, or wheezing. GASTROINTESTINAL: Denies abdominal pain. Denies nausea, vomiting, or diarrhea. MUSCULOSKELETAL: Denies neck or back pain or joint pain or swelling. SKIN: Denies rash or skin lesions. NEUROLOGICAL: Denies headache. Denies weakness or paralysis or loss of use of either side. Denies problems with gait or speech. Denies sensory or motor loss. ALL OTHER SYSTEMS REVIEWED AND NEGATIVE. Physical Exam - Vital signs Vitals: Temp Pulse Resp BP Pulse Ox 97.8 F 80 16 154/64 H 98 11/28/18 22:25 11/28/18 22:25 11/28/18 22:25 11/28/18 22:25 11/28/18 22:25 - Notes Notes: General Appearance: Well nourished, alert, cooperative, no acute distress, no obvious discomfort. Well-appearing. Vitals: reviewed, See vital signs table. Head: no swelling or tenderness to the head Eyes: PERRL, EOMI, Conjuctiva clear Mouth: No decreasd moisture Neck: Supple, no neck tenderness, No thyromegaly Lungs: No wheezing, No rales, No rhonci, No accessory muscle use, good air exchange bilaterally. Heart: Normal rate, Regular rythm, No murmur, no rub Abdomen: Normal BS, soft, No rigidity, No abdominal tenderness, No guarding, no rebound, no abdominal masses, no organomegaly Extremities: strength 5/5 in all extremities, good pulses in all extremities, no swelling or tenderness in the extremities, no edema. Back: No tenderness to palpation of thoracic or lumbar spine. No bruising. Patient does have some pain to palpation over the lower sacral and coccyx region. Skin: warm, dry, appropriate color, no rash Neuro: speech clear, oriented x 2, demented affect, responds appropriately to questions. Cranial nerves II through XII are intact. Patient able to move all 4 extremities on her own. No focal worsening of weakness on one side versus the other. Course - Re-evaluation Re-evalutation: 11/28/18 23:22 Patient looks very well on exam. She has no evidence of trauma or bruising on exam except for some pain when you push over her tailbone region. X-rays of pelvis and sacrum are negative. I was initially get a CT scan of her head that she has no bruising or swelling or pain to her head however patient's daughter called and spoke with nurse and informed her that the long term told her that she hit her head. This was not the exact report we got however the patient is elderly and does have dementia and therefore went forward with scanning her head. CT scan is negative. She has no pain to her neck or the remainder of her back other than her tailbone. Rest of her exam is normal. She has no pain with range of motion of her extremities. Feel she is safe to be discharged home. Dictation of this chart was performed using voice recognition software; therefore, there may be some unintended grammatical errors. - Vital Signs Vital signs: Temp Pulse Resp BP Pulse Ox 98.1 F 80 18 154/64 H 99 11/29/18 01:53 11/29/18 01:53 11/29/18 01:53 11/28/18 22:25 11/29/18 01:53 Discharge - Discharge Clinical Impression: Fall, Tail bone pain Condition: Good Disposition: HOME, SELF-CARE Additional Instructions: The CT scan of your head and xrays of your pelvis and tail bone d not show any fractures. Please avoid sitting on hard chairs until you are no longer having pain in your tail bone. Please get reevaluated by your doctor in 3-4 days. Please return to the ER immediately if you have severe headache, vomiting, or feel that you are worsening in any way.
== END 2018-11-29 02:00 | disposition home or self-care (01) ==
LOC: ER 22:04
DX: M53.3 Sacrococcygeal disorders, not elsewhere classified (principal); W18.30XA Fall on same level, unspecified, initial encounter; Y92.129 Unspecified place in nursing home as the place of occurrence of the external cause; F03.90 Unspecified dementia, unspecified severity, without behavioral disturbance, psychotic disturbance, mood disturbance, and anxiety; I48.91 Unspecified atrial fibrillation; I50.9 Heart failure, unspecified; E78.00 Pure hypercholesterolemia, unspecified; I11.0 Hypertensive heart disease with heart failure; E11.9 Type 2 diabetes mellitus without complications; Z95.1 Presence of aortocoronary bypass graft
CPT/HCPCS: 70450; 72170; 72220; 99284

== ENCOUNTER 2018-12-10 13:02 | Emergency (ER) | payer MEDICARE, BC ==
[2018-12-10 14:59] LABS: APPEARANCE,URINE CLEAR; BILIRUBIN,URINE NEGATIVE (NEGATIVE); COLOR,URINE STRAW; GLUCOSE, URINE 150 mg/dL (NEGATIVE); KETONES,URINE NEGATIVE (NEGATIVE); LEUKOCYTE ESTERASE,URINE NEGATIVE (NEGATIVE); NITRITE,URINE NEGATIVE (NEGATIVE); PROTEIN,URINE NEGATIVE (NEGATIVE); URINE SPECIFIC GRAVITY 1.009; UROBILINOGEN,URINE NEGATIVE mg/dL (<2.0)
[2018-12-10 15:37] VITALS: BP 131/58
--- NOTE | 2018-12-10 17:40 | ER Document Report ---
Entered by JOCELYN ANDRADE SCRIBE 12/10/18 1328 Acting as scribe for:ROB PRIEST MD ED General - General Chief Complaint: Psych Problem Stated Complaint: SI Time Seen by Provider: 12/10/18 13:08 Primary Care Provider: JONY KENT MD [Primary Care Provider] - Follow up as needed Mode of Arrival: Medic Information source: Emergency Med Personnel, Outside Facility Records Notes: 78-year-old female with dementia who presents today for complaints of possible suicidal ideation. According to EMS, nursing staff at [facility] stated that last night while the patient was having her usual sundowning, she mentioned wanting to . Upon arrival here, the patient is smiling with no complaints, demented at baseline. The family arrived later in the afternoon to give me more history. What they describe as the patient becoming more confused in the evenings and it is seems to have gotten worse since daylight savings time. She was started on trazodone yesterday for the symptoms. Symptoms were present yesterday evening when she got the medication and she was exhibiting her symptoms. They report calling back a little later and found that she was sleeping. The family agrees that the patient is probably sundowning and this is causing her increased agitation and making her make the statements about not wanting to be around any longer. TRAVEL OUTSIDE OF THE [place] IN LAST 30 DAYS: No - Related Data Allergies/Adverse Reactions: No Known Allergies Allergy (Unverified 08/03/11 20:09) Past Medical History - General Information source: [facility] Records, Outside Facility Records Cannot obtain history due to: Dementia - Social History Smoking Status: Former Smoker Cigarette use (# per day): No Frequency of alcohol use: None Drug Abuse: None Lives with: [facility] Family History: Reviewed & Not Pertinent, Hypertension - Her mother and her mother's side of the family - Past Medical History Cardiac Medical History: Reports: Hx Atrial Fibrillation, Hx Congestive Heart Failure, Hx Hypercholesterolemia, Hx Hypertension Pulmonary Medical History: Reports: Hx COPD Endocrine Medical History: Reports: Hx Diabetes Mellitus Type 2 Psychiatric Medical History: Reports: Hx Dementia, Hx Depression Past Surgical History: Reports: Hx Appendectomy, Hx Breast Surgery, Hx Cardiac Catheterization, Hx Section, Hx Coronary Artery Bypass Graft, Hx Coronary Stent, Hx Gynecologic Surgery - oophorectomy, Hx Orthopedic Surgery - Bilateral forearm fractures requiring open reduction and internal fixation, Hx Pacemaker, Other - Nephrectomy - Immunizations Hx Diphtheria, Pertussis, Tetanus Vaccination: Yes Review of Systems - Review of Systems -: Yes ROS unobtainable due to patient's medical condition - Dementia Physical Exam - Vital signs Vitals: Temp Pulse Resp BP Pulse Ox 98.4 F 79 18 118/52 L 95 12/10/18 13:17 12/10/18 13:17 12/10/18 13:17 12/10/18 13:17 12/10/18 13:17 - Notes Notes: Physical Exam: General: Alert, appears age appropriate. HEENT: Normocephalic. Atraumatic. PERRL. Extraocular movements intact. Oropharynx clear. Dry mucous membranes. Neck: Supple. Non-tender. Respiratory: No respiratory distress. Clear and equal breath sounds bilaterally. Cardiovascular: Regular rate and rhythm. Abdominal: Normal Inspection. Non-tender. No distension. Normal Bowel Sounds. Back: Non-tender. No deformity or step off. Extremities: Moves all four extremities. Upper extremities: Normal inspection. Normal ROM. Lower extremities: Normal inspection. No edema. Normal ROM. Neurological: Demented at baseline Psychological: Pleasant, smiling. Skin: Warm. Dry. Normal color. 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 They may need to give the trazodone dose earlier when she first starts showing her sundowning symptoms. Have the facility follow-up with her primary care provider to make any necessary medication adjustments. RETURN TO THE EMERGENCY ROOM IF ANY NEW OR WORSENING SYMPTOMS. Referrals: JONY KENT MD [Primary Care Provider] - Follow up as needed Scribe Attestation: 12/10/18 15:15 I personally performed the services described in the documentation, reviewed and edited the documentation which was dictated to the scribe in my presence, and it accurately records my words and actions. I personally performed the services described in the documentation, reviewed and edited the documentation which was dictated to the scribe in my presence, and it accurately records my words and actions.
== END 2018-12-10 15:38 ==
LOC: ER 13:02
DX: G30.9 Alzheimer's disease, unspecified (principal); F02.80 Dementia in other diseases classified elsewhere, unspecified severity, without behavioral disturbance, psychotic disturbance, mood disturbance, and anxiety; I10 Essential (primary) hypertension; E11.9 Type 2 diabetes mellitus without complications; J44.9 Chronic obstructive pulmonary disease, unspecified; Z87.891 Personal history of nicotine dependence
CPT/HCPCS: 81001; 99285

== ENCOUNTER 2019-01-23 21:13 | Emergency (ER) | payer MEDICARE, OTHER ==
[2019-01-23] MEDS ORDERED: ZIPRASIDONE MESYLATE INJ/PF 20 MG SDV IM ONE (22:42)
[2019-01-24] MEDS ORDERED: ZIPRASIDONE MESYLATE INJ/PF 20 MG SDV IM ONE (00:13)
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
[2019-01-24 01:12] LABS: ABSOLUTE EOSINOPHILS # (AUTO) 0.1 10^3/uL (0.0-0.6); ABSOLUTE MONOCYTES (AUTO) 0.5 10^3/uL (0.1-1.4); ABSOLUTE NEUT (AUTO) 5.1 10^3/uL (1.7-8.2); BASOPHILS % (AUTO) 0.6 % (0-2); EOSINOPHILS % (AUTO) 1.3 % (0-6); HEMATOCRIT 35.4 % (36.0-47.0); HEMOGLOBIN 11.8 g/dL (12.0-15.5); LYMPHOCYTES % (AUTO) 26.1 % (13-45); MEAN CORPUSCULAR HGB CONC 33.3 g/dL (32.0-36.0); MEAN CORPUSCULAR VOLUME 84 fl (80-97); MONOCYTES % (AUTO) 6.1 % (3-13); PLATELET COUNT 256 10^3/uL (150-450); RED BLOOD COUNT 4.21 10^6/uL (3.72-5.28); RED CELL DISTRIBUTION WIDTH 16.4 % (11.5-14.0); SEGMENTED NEUTROPHILS % (AUTO) 65.9 % (42-78); TOTAL CELLS COUNTED % (AUTO) 100 %; WHITE BLOOD COUNT 7.7 10^3/uL (4.0-10.5)
[2019-01-24 01:27] LABS: APPEARANCE,URINE CLEAR; BILIRUBIN,URINE NEGATIVE (NEGATIVE); COLOR,URINE YELLOW; GLUCOSE, URINE NEGATIVE (NEGATIVE); KETONES,URINE TRACE mg/dL (NEGATIVE); LEUKOCYTE ESTERASE,URINE NEGATIVE (NEGATIVE); NITRITE,URINE NEGATIVE (NEGATIVE); PROTEIN,URINE NEGATIVE (NEGATIVE); URINE SPECIFIC GRAVITY 1.015; UROBILINOGEN,URINE NEGATIVE mg/dL (<2.0)
[2019-01-24 01:34] LABS: ALANINE AMINOTRANSFERASE 24 U/L (9-52); ALBUMIN 3.5 g/dL (3.5-5.0); ALKALINE PHOSPHATASE 52 U/L (38-126); ANION GAP 10 (5-19); ASPARTATE AMINO TRANSFERASE 15 U/L (14-36); BILIRUBIN,DIRECT 0.2 mg/dL (0.0-0.4); BILIRUBIN,TOTAL 0.4 mg/dL (0.2-1.3); BLOOD UREA NITROGEN 22 mg/dL (7-20); CARBON DIOXIDE 28 mmol/L (22-30); CHLORIDE 103 mmol/L (98-107); GLUCOSE 159 mg/dL (75-110); POTASSIUM 3.9 mmol/L (3.6-5.0); SODIUM 140.7 mmol/L (137-145); TOTAL PROTEIN 6.7 g/dL (6.3-8.2)
[2019-01-24 01:35] LABS: ACETAMINOPHEN < 10 ug/mL (10-30); ALCOHOL < 10 mg/dL (NONE DETECTED); SALICYLATE < 1.0 mg/dL (2.0-20.0)
[2019-01-24 01:41] LABS: ANISOCYTOSIS SLIGHT; OVALOCYTES SLIGHT; PLATELET COMMENT ADEQUATE; STOMATOCYTES SLIGHT
[2019-01-24 02:10] LABS: URINE AMPHETAMINES SCREEN NEGATIVE; URINE BARBITURATES SCREEN NEGATIVE; URINE BENZODIAZEPINES SCREEN NEGATIVE; URINE COCAINE SCREEN NEGATIVE; URINE MARIJUANA (THC) SCREEN NEGATIVE; URINE METHADONE SCREEN NEGATIVE; URINE PHENCYCLIDINE SCREEN NEGATIVE
[2019-01-24 17:08] VITALS: BP 139/83
--- NOTE | 2019-01-24 18:42 | EKG REPORT ---
SEVERITY:- ABNORMAL ECG - VENTRICULAR-PACED COMPLEXES LVH WITH IVCD, LAD AND SECONDARY REPOL ABNRM : Confirmed by: Matteo Yi 24-Jan-2019 18:42:15
== END 2019-01-24 21:20 | disposition home or self-care (01) ==
LOC: ER 21:13
DX: G31.83 Neurocognitive disorder with Lewy bodies (principal); F02.81 Dementia in other diseases classified elsewhere, unspecified severity, with behavioral disturbance; I10 Essential (primary) hypertension; J44.9 Chronic obstructive pulmonary disease, unspecified; E11.9 Type 2 diabetes mellitus without complications
CPT/HCPCS: 93005; 99285; 96372; 51701; 36415; 80307 ×4; 85025; 80053; 81001; 93010; J3486

== ENCOUNTER 2019-01-25 18:07 | Emergency (ER) | payer MEDICARE, OTHER ==
[2019-01-25] MEDS ORDERED: RISPERIDONE 0.25 MG TABLET PO ONE (18:42)
[2019-01-25] MEDS ORDERED: DIVALPROEX SODIUM 500 MG TAB.SR.24H PO ONE (18:43)
[2019-01-25] MEDS ORDERED: BUSPIRONE HCL 10 MG TABLET PO ONE (18:43)
--- NOTE | 2019-01-25 19:47 | ER Document Report ---
ED General - General Chief Complaint: Altered Mental Status Stated Complaint: ALTERED MENTAL STATUS Time Seen by Provider: 01/25/19 18:27 Primary Care Provider: JONY KENT MD [Primary Care Provider] - Follow up as needed Mode of Arrival: Medic Information source: Relative, Transfer Record, Emergency Med Personnel Notes: This is a 78-year-old woman with a history of Lewy body dementia (with frontal lobe behavioral changes) that was recently evaluated in the emergency room and discharged to [facility]. Patient is brought back from [facility] for disruptive behavior. Commendations at the time of discharge yesterday included medicine changes as well as recommendations for follow-up for behavioral health case manager with behavioral planning given her dementia. Patient is not in any acute distress. She is afebrile and has no complaints at this time. She intermittently gets aggressive if she thinks people are laughing at her. TRAVEL OUTSIDE OF THE [place] IN LAST 30 DAYS: No - HPI Onset: Other - Patient's behavior has been typical for her. Onset/Duration: Gradual Quality of pain: No pain Severity: None Pain Level: Denies Associated symptoms: denies: Chest pain, Fever, Shortness of breath Exacerbated by: Denies Relieved by: Denies Similar symptoms previously: Yes Recently seen / treated by doctor: Yes - Related Data Allergies/Adverse Reactions: No Known Allergies Allergy (Unverified 08/03/11 20:09) Past Medical History - General Information source: Relative - Social History Smoking Status: Unknown if Ever Smoked Cigarette use (# per day): No Chew tobacco use (# tins/day): No Frequency of alcohol use: None Drug Abuse: None Lives with: Assisted Family History: Reviewed & Not Pertinent, Hypertension - Her mother and her mother's side of the family Patient has suicidal ideation: No Patient has homicidal ideation: No - Past Medical History Cardiac Medical History: Reports: Hx Atrial Fibrillation, Hx Congestive Heart Failure, Hx Hypercholesterolemia, Hx Hypertension Pulmonary Medical History: Reports: Hx COPD Denies: Hx Asthma, Hx Sleep Apnea Neurological Medical History: Denies: Hx Seizures Endocrine Medical History: Reports: Hx Diabetes Mellitus Type 2. Denies: Hx Diabetes Mellitus Type 1, Hx Hyperthyroidism, Hx Hypothyroidism Renal/ Medical History: Denies: Hx Peritoneal Dialysis GI Medical History: Denies: Hx Cirrhosis, Hx Hepatitis Musculoskeletal Medical History: Denies Hx Arthritis, Denies Hx Gout Skin Medical History: Denies Hx Eczema, Denies Hx Psoriasis Psychiatric Medical History: Reports: Hx Dementia, Hx Depression Infectious Medical History: Denies: Hx Hepatitis Past Surgical History: Reports: Hx Appendectomy, Hx Breast Surgery, Hx Cardiac Catheterization, Hx Section, Hx Coronary Artery Bypass Graft, Hx Coronary Stent, Hx Gynecologic Surgery - oophorectomy, Hx Orthopedic Surgery - Bilateral forearm fractures requiring open reduction and internal fixation, Hx Pacemaker, Other - Nephrectomy - Immunizations Hx Diphtheria, Pertussis, Tetanus Vaccination: Yes Review of Systems - Review of Systems Constitutional: denies: Chills, Fever EENT: No symptoms reported Cardiovascular: No symptoms reported Respiratory: No symptoms reported Gastrointestinal: No symptoms reported Genitourinary: No symptoms reported Female Genitourinary: No symptoms reported Musculoskeletal: No symptoms reported Skin: No symptoms reported Hematologic/Lymphatic: No symptoms reported Neurological/Psychological: See HPI Physical Exam - Vital signs Notes: Physical exam: GENERAL: 78-year-old woman, no acute distress, she does have intermittent outbu rsts. HEAD: Atraumatic, normocephalic. EYES: Pupils equal round and reactive to light, extraocular movements intact, sclera anicteric, conjunctiva are normal. ENT: TMs normal, nares patent, oropharynx clear without exudates. Moist mucous membranes. NECK: Normal range of motion, supple without obvious mass or JVD. LUNGS: Breath sounds clear to auscultation bilaterally and equal. No wheezes r ales or rhonchi. HEART: Regular rate and rhythm without murmurs, rubs or gallops. ABDOMEN: Soft, normoactive bowel sounds. No tenderness to palpation. No guarding, no rebound. No masses appreciated. EXTREMITIES: Normal range of motion, no pitting or edema. No clubbing or cyanosis. NEUROLOGICAL: Cranial nerves II through XII grossly intact. Normal speech, moving all extremities. PSYCH: Patient is with the son who is at the bedside: He states that this is how she has been. SKIN: Warm, Dry, normal turgor, no rashes or lesions noted. Course - Re-evaluation Re-evalutation: 01/25/19 22:09 Note: I spoke to the oncology social worker who knows this patient and had seen her yesterday and made recommendations. The recommendations have remained the same. Patient's vital signs are stable and her labs are unchanged. Pain is return to the [facility] - Laboratory Result Diagrams: 01/25/19 19:35 01/25/19 19:35 Laboratory results interpreted by me: 01/25/19 01/25/19 19:35 19:35 RDW 16.5 H Chloride 94 L BUN 25 H Est GFR (Non-Af Amer) 55 L Glucose 262 H Calcium 10.9 H Total Protein 8.5 H Discharge - Discharge Clinical Impression: Lewy body dementia Condition: Stable Disposition: HOME, SELF-CARE Additional Instructions: Recommendations are to continue current medicines. Descriptions were given yesterday. It is recommended the patient receive a consult with her facility psychologist or behavioral health case manager to address developing a behavioral plan regarding behaviors as they are associated with Lewy body dementia Referrals: JONY KNET MD [Primary Care Provider] - Follow up as needed
[2019-01-25 19:51] LABS: ABSOLUTE BASOPHILS # (AUTO) 0.1 10^3/uL (0.0-0.2); ABSOLUTE EOSINOPHILS # (AUTO) 0.1 10^3/uL (0.0-0.6); ABSOLUTE LYMPHOCYTES (AUTO) 2.3 10^3/uL (0.5-4.7); ABSOLUTE MONOCYTES (AUTO) 0.6 10^3/uL (0.1-1.4); ABSOLUTE NEUT (AUTO) 4.5 10^3/uL (1.7-8.2); BASOPHILS % (AUTO) 0.9 % (0-2); HEMATOCRIT 39.2 % (36.0-47.0); HEMOGLOBIN 12.9 g/dL (12.0-15.5); LYMPHOCYTES % (AUTO) 30.3 % (13-45); MEAN CORPUSCULAR HEMOGLOBIN 27.9 pg (27.0-33.4); MEAN CORPUSCULAR HGB CONC 32.8 g/dL (32.0-36.0); MEAN CORPUSCULAR VOLUME 85 fl (80-97); MONOCYTES % (AUTO) 7.5 % (3-13); PLATELET COUNT 286 10^3/uL (150-450); RED CELL DISTRIBUTION WIDTH 16.5 % (11.5-14.0); SEGMENTED NEUTROPHILS % (AUTO) 60.3 % (42-78); TOTAL CELLS COUNTED % (AUTO) 100 %; WHITE BLOOD COUNT 7.5 10^3/uL (4.0-10.5)
[2019-01-25 20:17] LABS: ALANINE AMINOTRANSFERASE 27 U/L (9-52); ALBUMIN 4.7 g/dL (3.5-5.0); ALKALINE PHOSPHATASE 64 U/L (38-126); ANION GAP 14 (5-19); ASPARTATE AMINO TRANSFERASE 14 U/L (14-36); BILIRUBIN,DIRECT 0.3 mg/dL (0.0-0.4); BILIRUBIN,TOTAL 0.6 mg/dL (0.2-1.3); BLOOD UREA NITROGEN 25 mg/dL (7-20); CALCIUM 10.9 mg/dL (8.4-10.2); CARBON DIOXIDE 30 mmol/L (22-30); CHLORIDE 94 mmol/L (98-107); GLUCOSE 262 mg/dL (75-110); SODIUM 137.6 mmol/L (137-145); TOTAL PROTEIN 8.5 g/dL (6.3-8.2)
[2019-01-26 00:01] VITALS: BP 149/68
== END 2019-01-26 00:01 | disposition home or self-care (01) ==
LOC: ER 18:07
DX: G31.83 Neurocognitive disorder with Lewy bodies (principal); F02.81 Dementia in other diseases classified elsewhere, unspecified severity, with behavioral disturbance; I10 Essential (primary) hypertension; J44.9 Chronic obstructive pulmonary disease, unspecified; E11.9 Type 2 diabetes mellitus without complications
CPT/HCPCS: 99285; 36415; 84443; 85025; 80053; A9270 ×3; J3490